=== PATIENT | female | born 1945 | race Caucasian/White ===

== ENCOUNTER 2017-07-18 13:04 | Inpatient (IN) | payer OTHER ==
[2017-07-18 13:20] VITALS: BMI 20.2
--- NOTE | 2017-07-18 13:32 | PDOC ---
History of Present Illness - General Chief Complaint: Shortness of Breath Stated Complaint: SOB Time Seen by Provider: 07/18/17 13:09 History Source: Patient Exam Limitations: No Limitations - History of Present Illness Initial Comments: 07/18/17 13:26 72y F hx of ESRD (MWF, last dialysis on Wed shortened to 2hr due to ont feeling well), htn, recent dx of pna and was hospitalized at [facility] for PNA, and dc on wednesday, currently on abx. Pt notes she has not felt significantly better, and family noted pt was more short of breath so brought pt to the ED for evaluation. pt does endorse a mid epigastric/chest discomfort for the past few adys as wella s orthopnea. pt endorses a poor appettie, and some nausea w/o vomiting. The pt endorses a cough productive of whitish sputum, no associated fever/chills, leg swelling, abd pain, back pain, hemoptysis, numbness/tingling. PMD at [facility]. Past History - Past Medical History Allergies/Adverse Reactions: Allergies Allergy/AdvReac Type Severity Reaction Status Date / Time Penicillins Allergy Unknown Hives Verified 07/19/17 13:28 Home Medications: Ambulatory Orders Amlodipine Besylate [Norvasc -] 5 mg PO DAILY 09/25/14 Sevelamer HCl [Renagel] 2,400 mg PO TID 09/25/14 Aspirin [Aspirin EC] 81 mg PO DAILY 07/18/17 Calcium Acetate [Phoslyra] 3 tab PO TID 07/18/17 Doxycycline Hyclate [Vibramycin] 100 mg PO BID 07/18/17 Metoclopramide HCl [Reglan] 5 mg PO ACHS 07/18/17 Metoprolol Succinate [Toprol Xl] 50 mg PO DAILY 07/18/17 Pantoprazole Sodium [Protonix -] 40 mg PO DAILY 07/18/17 Vit B Comp No.3/Folic/C/Biotin [Leyla-Tunde Rx Tablet] 1 each PO DAILY 07/18/17 COPD: No Dialysis: Yes HTN: Yes - Surgical History Cholecystectomy: Yes - Suicide/Smoking/Psychosocial Hx Smoking History: Never smoked Have you smoked in the past 12 months: No Information on smoking cessation initiated: No Hx Alcohol Use: No Drug/Substance Use Hx: No Substance Use Type: None Review of Systems - Review of Systems Able to Perform ROS?: Yes Comments:: 07/18/17 13:28 Constitutional - no reported Fever, Chills, HEENT: no reported vision changes, sore throat Respiratory: +cough, sob, bno reported hemoptysis Cardiac: +chest pain, no reported palpitations, light headedness, leg swelling Abd/GI: no reported abd pain, nausea, vomiting, blood per rectum, melena, diarrhea : no reported dysuria, frequency, discharge Musculskelatal - no reported back pain, joint swelling skin - no reported bruising, erythema, rash neurological: no reported headache, numbness, focal weakness, tingling, ataxia, hematologic: no reported easy bruising, easy bleeding *Physical Exam - Vital Signs Last Vital Signs Temp Pulse Resp BP Pulse Ox 97.8 F 79 20 155/93 95 07/18/17 13:05 07/18/17 13:17 07/18/17 13:05 07/18/17 13:05 07/18/17 13:17 - Physical Exam Comments: 07/18/17 13:29 GENERAL: The patient is awake, alert, and fully oriented, in moderat respiratory distress, slightly tachpneic HEAD: Normocephalic, atraumatic. EYES: extraocular movements intact, sclera anicteric, conjunctiva clear. ENT: Normal voice, Moist mucous membranes. NECK: Normal range of motion, supple LUNGS: rhonchi at bases L>R, slight wheezing at R base HEART: Regular rate and rhythm, normal S1 and S2 without murmur, rub or gallop. ABDOMEN: Soft, nontender No guarding, no rebound. . No CVA tenderness EXTREMITIES: Normal range of motion, trace edema. No clubbing or cyanosis. No cords, erythema, or tenderness. NEUROLOGICAL: No facial assymetry, Normal speech, moving all 4 extremities spontaneously and symmetrically PSYCH: Normal mood, normal affect. SKIN: Warm, Dry, normal turgor, Heart Score/ECG Review - ECG Impressions Comment:: 07/18/17 13:30 Twelve-lead EKG was performed and reviewed by me. There is normal sinus rhythm with a normal rate. Rate of [address] depressions noted in V5 and V6 ED Treatment Course - LABORATORY CBC & Chemistry Diagram: 07/20/17 10:00 07/19/17 07:20 - RADIOLOGY Radiology Studies Ordered: Category Date Time Status CHEST X-RAY PORTABLE* [RAD] Stat Radiology 07/18/17 13:09 Ordered Medical Decision Making - Medical Decision Making 07/18/17 13:31 82-year-old female with end-stage renal, hypertension presenting with complaint of persistent shortness of breath after recent hospitalization for pneumonia. On arrival the patient was tachypneic appearing, hypoxic to the mid 80s on room air, rales at the bases. 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 devries's service pt bobby makes small bit of urine so will give her some lasix Case discussed in detail with admitting physician including history, physical exam and ancillary studies. Admitting physician has assumed care for the patient, will follow all pending diagnostics and will complete the evaluation and treatment. CRITICAL CARE DOCUMENTATION: I spent ~45 minutes of Critical Care time, excluding separately billable procedures, involving high complexity decision making to assess, manipulate and support vital system function(s) to treat single or multiple vital organ system failure and/or to prevent further life threatening deterioration of the patient' s condition. *DC/Admit/Observation/Transfer Diagnosis at time of Disposition: End stage chronic kidney disease, Hypoxia Fluid overload, unspecified Qualifiers: Hypervolemia type: unspecified Qualified Code(s): E87.70 - Fluid overload, unspecified Chest pain Qualifiers: Chest pain type: unspecified Qualified Code(s): R07.9 - Chest pain, unspecified - Discharge Dispostion Condition at time of disposition: Guarded Decision to Admit order: Yes - Referrals - Patient Instructions - Post Discharge Activity
[2017-07-18 14:11] LABS: BASO % 2.8 % (0-2.0); EOS % 0.9 % (0-4.5); HEMATOCRIT 26.6 % (32.4-45.2); HEMOGLOBIN 9.2 GM/dl (10.7-15.3); LYMPH % 9.3 % (8-40); MCH 34.8 pg (25.7-33.7); MCHC 34.7 g/dl (32.0-36.0); MEAN CELL VOLUME 100.3 fl (80-96); MEAN PLT VOLUME 8.4 fl (7.5-11.1); PLATELET COUNT 519 K/MM3 (134-434); RBC 2.65 M/mm3 (3.60-5.2); RDW 13.5 % (11.6-15.6); WHITE BLOOD COUNT 12.7 K/mm3 (4.0-10.8)
[2017-07-18 14:31] LABS: ALBUMIN 3.2 g/dl (3.5-5.0); ALK PHOS 149 U/L (32-92); ANION GAP 13 (8-16); BILIRUBIN,TOTAL 0.6 mg/dl (0.2-1.0); BLOOD UREA NITROGEN 47 mg/dl (7-18); CALCIUM 8.5 mg/dl (8.4-10.2); CHLORIDE 95 mmol/L (98-107); CO2 19 mmol/L (22-28); CREATININE 6.3 mg/dl (0.6-1.3); GLUCOSE,RANDOM 164 mg/dl (74-106); POTASSIUM 4.7 mmol/L (3.5-5.1); SGOT/AST 23 U/L (10-42); SGPT/ALT 9 U/L (10-40); SODIUM 127 mmol/L (136-145); TOT PROT 8.1 g/dl (6.4-8.3)
[2017-07-18 14:53] LABS: INR 1.24 (0.82-1.09); PROTHROMBIN TIME (PATIENT) 13.8 SEC (10.2-13.0)
[2017-07-18] MEDS ORDERED: VANCOMYCIN 1,000 MG in DEXTROSE 5%-WATER - 250 ML IVPB ONE (15:00)
[2017-07-18 15:09] LABS: VENOUS PH 7.34 (7.32-7.42)
[2017-07-18 15:10] LABS: VENOUS PC02 39.1 mmHg (38-52); VENOUS PO2 41.6 mmHg (28-48)
[2017-07-18] MEDS ORDERED: VANCOMYCIN 1,000 MG VIAL (RESTRICTED TO ID ONLY) ONE (15:13)
[2017-07-18] MEDS ORDERED: ASPIRIN 81 MG CHEWABLE TABLETS PO ONE (15:18)
[2017-07-18] MEDS ORDERED: ASPIRIN 81 MG CHEWABLE TABLETS ONE (15:27)
[2017-07-18] MEDS ORDERED: FUROSEMIDE 40 MG/4 ML INJECTABLE VIAL IVPUSH ONE (15:28)
[2017-07-18] MEDS ORDERED: FUROSEMIDE 40 MG/4 ML INJECTABLE VIAL ONE (15:33)
--- NOTE | 2017-07-18 16:12 | EKG ---
Test Reason : Blood Pressure : / mmHG Vent. Rate : 083 BPM Atrial Rate : 083 BPM P-R Int : 152 ms QRS Dur : 086 ms QT Int : 420 ms P-R-T Axes : 019 078 078 degrees QTc Int : 493 ms NORMAL SINUS RHYTHM NONSPECIFIC ST ABNORMALITY PROLONGED QT ABNORMAL ECG WHEN COMPARED WITH ECG OF 25-SEP-2014 21:40, ST NOW DEPRESSED IN LATERAL LEADS QT HAS LENGTHENED Confirmed by MD Man, Christopher ([id number]) on 07/18/2017 4:11:44 PM Referred By: CAYLA WATSON Confirmed By:Christopher Conway MD
[2017-07-18] MEDS ORDERED: ACETAMINOPHEN 325 MG TABLET (FP) PO ONE (16:25)
[2017-07-18] MEDS ORDERED: PATIENT'S OWN MEDICATION (NON-FORMULARY) (Metoclopramide Hcl [Reglan] 5 MG) PO SCH (16:30)
[2017-07-18] MEDS ORDERED: ACETAMINOPHEN 325 MG TABLET (FP) ONE (16:33)
[2017-07-18] MEDS ORDERED: METOCLOPRAMIDE HCL 10 MG TABLET (FP) PO ONE (16:36)
[2017-07-18] MEDS: METOCLOPRAMIDE HCL 10 MG TABLET (FP) PO SCH ×3 (16:39→22:40)
[2017-07-18] MEDS ORDERED: SEVELAMER CARBONATE 800 MG TAB (FP) PO SCH (17:30)
[2017-07-18] MEDS ORDERED: CALCIUM ACETATE 667 MG CAPSULE (FP) PO SCH (17:30)
--- NOTE | 2017-07-18 21:47 | HP ---
CHIEF COMPLAINT: Shortness of breath PCP: [facility]/Dr. Peña HISTORY OF PRESENT ILLNESS: 72 year-old female with a PMH significant for HTN, ESRD (MWF), last session on 07/16 cut short after 2 hours because patient not feeling well. Patient discharged from [facility] on 07/14 where she was treated for pneumonia. She was discharged on doxycycline 100mg BID. Patient complains of not feeling well since her discharge. She complains of mid-epigastric discomfort and orthopnea x several days. She is now complaining of SOB an right- sided upper back pain. Her last dialysis session on 07/16 was cut short after 2 hours because patient was not feeling well. Denies fever, sweats, chills. ER course was notable for: (1) Afebrile, BP 47/66, p76, SpO2 95% on 3L, RR 28 (2) WB 12.7 (3) CXR: extensive pulmonary and infiltrative changes (4) Vanc x 1; IV levaquin 750mg x 1 Recent Travel: No PAST MEDICAL HISTORY: Hypertension ESRD on HD (MWF) PAST SURGICAL HISTORY: Left arm AV fistula Social History: Smoking: no Alcohol: no Drugs: no Family History: Allergies Penicillins Allergy Home Medications Medication Instructions Recorded Amlodipine Besylate [Norvasc -] 5 mg PO DAILY 09/25/14 Sevelamer HCl [Renagel] 2,400 mg PO TID 09/25/14 Aspirin [Aspirin EC] 81 mg PO DAILY 07/18/17 Calcium Acetate [Phoslyra] 3 tab PO TID 07/18/17 Doxycycline Hyclate [Vibramycin] 100 mg PO BID 07/18/17 Metoclopramide HCl [Reglan] 5 mg PO ACHS 07/18/17 Metoprolol Succinate [Toprol Xl] 50 mg PO DAILY 07/18/17 Pantoprazole Sodium [Protonix -] 40 mg PO DAILY 07/18/17 Vit B Comp No.3/Folic/C/Biotin 1 each PO DAILY 07/18/17 [Leyla-Tunde Rx Tablet] REVIEW OF SYSTEMS CONSTITUTIONAL: Absent: fever, chills, diaphoresis, generalized weakness, malaise, loss of appetite, weight change HEENT: Absent: rhinorrhea, nasal congestion, throat pain, throat swelling, difficulty swallowing, mouth swelling, ear pain, eye pain, visual changes CARDIOVASCULAR: +chest pressure Absent: syncope, palpitations, irregular heart rate, lightheadedness, peripheral edema RESPIRATORY: +SOB, orthopnea Absent: cough, dyspnea with exertion, wheezing, stridor, hemoptysis GASTROINTESTINAL: Absent: abdominal pain, abdominal distension, nausea, vomiting, diarrhea, constipation, melena, hematochezia GENITOURINARY: Absent: dysuria, frequency, urgency, hesitancy, hematuria, flank pain, genital pain MUSCULOSKELETAL: Absent: myalgia, arthralgia, joint swelling, back pain, neck pain SKIN: Absent: rash, itching, pallor HEMATOLOGIC/IMMUNOLOGIC: Absent: easy bleeding, easy bruising, lymphadenopathy, frequent infections ENDOCRINE: Absent: unexplained weight gain, unexplained weight loss, heat intolerance, cold intolerance NEUROLOGIC: Absent: headache, focal weakness or paresthesias, dizziness, unsteady gait, seizure, mental status changes, bladder or bowel incontinence PSYCHIATRIC: Absent: anxiety, depression, suicidal or homicidal ideation, hallucinations. PHYSICAL EXAMINATION Vital Signs - 24 hr Vital Signs Temperature 98.2 F 07/18/17 19:27 Pulse Rate 73 07/18/17 19:27 Respiratory Rate 22 07/18/17 19:27 Blood Pressure 145/72 07/18/17 19: O2 Sat by Pulse Oximetry (%) 92 L 07/18/17 18:25 GENERAL: Awake, alert, and fully oriented, in mild respiratory distress and anxious HEAD: Normal with no signs of trauma. EYES: Pupils equal, round and reactive to light, extraocular movements intact, sclera anicteric, conjunctiva clear. No lid lag. EARS, NOSE, THROAT: Ears normal, nares patent, oropharynx clear without exudates. Moist mucous membranes. NECK: Normal range of motion, supple without lymphadenopathy, JVD, or masses. LUNGS: Diffuse rales and rhonchi HEART: Regular rate and rhythm, normal S1 and S2 without murmur, rub or gallop. ABDOMEN: Soft, nontender, not distended, normoactive bowel sounds, no guarding, no rebound; ecchymotic areas MUSCULOSKELETAL: Normal range of motion at all joints. No bony deformities or tenderness. No CVA tenderness. UPPER EXTREMITIES: 2+ pulses, warm, well-perfused. Extensive ecchymotic areas bilaterally; left AV fistula, +thrill +bruit LOWER EXTREMITIES: 2+ pulses, warm, well-perfused. No calf tenderness. No peripheral edema. NEUROLOGICAL: Cranial nerves II-XII intact. Normal speech. Laboratory Results - last 24 hr 07/18/17 07/18/17 07/18/17 13:54 13:54 13:54 WBC 12.7 H RBC 2.65 L Hgb 9.2 L Hct 26.6 L MCV 100.3 H MCH 34.8 H MCHC 34.7 RDW 13.5 Plt Count 519 H MPV 8.4 Neutrophils % 80.0 Lymphocytes % 9.3 Monocytes % 7.0 Eosinophils % 0.9 Basophils % 2.8 H PT with INR 13.8 H INR 1.24 H PTT (Actin FS) 32.0 VBG pH POC VBG pCO2 POC VBG pO2 Mixed VBG HCO3 Sodium 127 L Potassium 4.7 Chloride 95 L Carbon Dioxide 19 L Anion Gap 13 BUN 47 H Creatinine 6.3 H Creat Clearance w eGFR 6.50 Random Glucose 164 H Lactic Acid Calcium 8.5 Total Bilirubin 0.6 AST 23 ALT 9 L Alkaline Phosphatase 149 H Troponin I Total Protein 8.1 Albumin 3.2 L 07/18/17 07/18/17 07/18/17 13:54 13:54 14:00 WBC RBC Hgb Hct MCV MCH MCHC RDW Plt Count MPV Neutrophils % Lymphocytes % Monocytes % Eosinophils % Basophils % PT with INR INR PTT (Actin FS) VBG pH 7.34 POC VBG pCO2 39.1 POC VBG pO2 41.6 Mixed VBG HCO3 20.4 Sodium Potassium Chloride Carbon Dioxide Anion Gap BUN Creatinine Creat Clearance w eGFR Random Glucose Lactic Acid 0.9 Calcium Total Bilirubin AST ALT Alkaline Phosphatase Troponin I 0.17 H Total Protein Albumin 07/18/17 19:30 WBC RBC Hgb Hct MCV MCH MCHC RDW Plt Count MPV Neutrophils % Lymphocytes % Monocytes % Eosinophils % Basophils % PT with INR INR PTT (Actin FS) VBG pH POC VBG pCO2 POC VBG pO2 Mixed VBG HCO3 Sodium Potassium Chloride Carbon Dioxide Anion Gap BUN Creatinine Creat Clearance w eGFR Random Glucose Lactic Acid 0.8 Calcium Total Bilirubin AST ALT Alkaline Phosphatase Troponin I Total Protein Albumin Imaging CXR: extensive pulmonary and infiltrative changes ASSESSMENT/PLAN: 72 year-old female with a PMH of HTN and ESRD. Discharged from OSH five days ago for pneumonia on PO antibiotics. Last HD session on 07/17 cut short. Admitted for hypoxic respiratory failure, ESRD, and pneumonia. Hypoxic respiratory failure secondary --likely multifactorial: volume overload +/- pneumonia --placed on NRB, satting 100% ESRD on HD --emergent dialysis --continue sevelamer Pneumonia --hospitalized for five days at [facility] for pneumonia, discharged on 07/14 on doxy BID --received levaquin and vanc in ED --penicillin allergic --ID consult placed Chest pressure --initial troponin elevated 0.17, two pending --cardiology consult Hypertension --BP stable --continue amlodipine, Toprol XL DVT prophylais: subq heparin Visit type - Emergency Visit Emergency Visit: Yes ED Registration Date: 07/18/17 Care time: The patient presented to the Emergency Department on the above date and was hospitalized for further evaluation of their emergent condition. - New Patient This patient is new to me today: Yes Date on this admission: 07/18/17 - Critical Care Critical Care patient: No Hospitalist Screening - Colonoscopy Questionnaire Colonoscopy Questionnaire: Colonoscopy Questionnaire - Patient: 50 - 75 years old and never had a screening colonoscopy: Unknown History of colon or rectal polyps, or CA: Unknown History of IBD, Crohn's disease or UC: Unknown History of abdominal radiation therapy as a child: Unknown - Relative: 1 with colon or rectal CA, or polyps at age 60 or younger: Unknown Colon or rectal CA diagnosed at age 45 or younger: Unknown Multiple relatives with colon or rectal CA: Unknown - Outcome: Screening Result: Negative Screen
[2017-07-18] MEDS ORDERED: DOXYCYCLINE HYCLATE 100 MG CAPSULE PO SCH (22:00)
[2017-07-18] MEDS ORDERED: SEVELAMER HCL 1600 MG PO SCH (22:00)
[2017-07-18] MEDS ORDERED: CALCIUM ACETATE PO SCH (22:00)
[2017-07-18] MEDS: HEPARIN NA (PORCINE) 5,000 UNITS/ML 1ML VIAL SQ SCH (22:36)
--- NOTE | 2017-07-18 23:20 | CON.NEP ---
Consult Consult Specialty:: nephrology Referred by:: martha walker Reason for Consultation:: esrd, fluid overload - History of Present Illness Chief Complaint: sob, weakness History of Present Illness: patient has been sick x 1 week s/p admission for pneumonia at [facility] treated with iv abx then sent home with oral abx she did not get better and she was to sick to stay for a full treatment in dialysis in her outpatient unit she was brought to [facility] and then transferred to this [facility] with dx of fluid overload in need of urgent dialysis she is seen during the treatment - History Source History Provided By: Patient, Family Member Limitations to Obtaining History: Clinical Condition - Past Medical History Cardio/Vascular: Yes: HTN - Alcohol/Substance Use Hx Alcohol Use: No - Smoking History Smoking history: Never smoked Have you smoked in the past 12 months: No Home Medications - Allergies Allergies/Adverse Reactions: Allergies Allergy/AdvReac Type Severity Reaction Status Date / Time Penicillins Allergy Unknown Verified 07/18/17 13:15 - Home Medications Home Medications: Ambulatory Orders Amlodipine Besylate [Norvasc -] 5 mg PO DAILY 09/25/14 Sevelamer HCl [Renagel] 2,400 mg PO TID 09/25/14 Aspirin [Aspirin EC] 81 mg PO DAILY 07/18/17 Calcium Acetate [Phoslyra] 3 tab PO TID 07/18/17 Doxycycline Hyclate [Vibramycin] 100 mg PO BID 07/18/17 Metoclopramide HCl [Reglan] 5 mg PO ACHS 07/18/17 Metoprolol Succinate [Toprol Xl] 50 mg PO DAILY 07/18/17 Pantoprazole Sodium [Protonix -] 40 mg PO DAILY 07/18/17 Vit B Comp No.3/Folic/C/Biotin [Leyla-Tunde Rx Tablet] 1 each PO DAILY 07/18/17 Nephrology Consult - Height Height: 5 ft - Weight Weight: 103 lb 9.876 oz - BMI Body Mass Index (BMI): 20.2 - Lab Results CBC,BMP: CBC, BMP 07/18/17 13:54 07/18/17 13:54 Anion Gap: Anion Gap Anion Gap 13 (8-16) 07/18/17 13:54 - Physical Examination Vital Signs: Vital Signs Temperature 97.6 F 07/18/17 22:45 Pulse Rate 83 07/18/17 22:50 Respiratory Rate 07/18/17 22:50 Blood Pressure 162/82 07/18/17 22:50 O2 Sat by Pulse Oximetry (%) 92 L 07/18/17 18:25 Constitutional: Yes: Diaphoresis, Mild Distress Cardiovascular: Yes: JVD, S1, S2 Respiratory: Yes: On Venti-Mask, Rales, Rhonchi, Wheezes Gastrointestinal: Yes: WNL, Normal Bowel Sounds Access for Hemodialysis: AV Fistula Musculoskeletal: Yes: WNL Edema: No Neurological: Yes: Alert Psychiatric: Yes: Alert Assessment/Plan bilateral pna esrd possible component of chf r/o impending ards Plan- urgent hemodialysis on monitored floor
[2017-07-19] MEDS ORDERED: ACETAMINOPHEN 500 MG TABLET (FP) PO ONE (02:01)
[2017-07-19] MEDS: HEPARIN NA (PORCINE) 5,000 UNITS/ML 1ML VIAL SQ SCH ×3 (06:27→21:56)
[2017-07-19] MEDS: METOCLOPRAMIDE HCL 10 MG TABLET (FP) PO SCH ×4 (06:27→21:56)
[2017-07-19] MEDS ORDERED: PT OWN MED DRAWER 7, Y5N ONE ×3 (06:52→17:59)
[2017-07-19 07:54] LABS: BASO % 1.1 % (0-2.0); EOS % 0.4 % (0-4.5); HEMATOCRIT 22.9 % (32.4-45.2); HEMOGLOBIN 7.9 GM/dL (10.7-15.3); LYMPH % 10.8 % (8-40); MCH 34.5 pg (25.7-33.7); MCHC 34.4 g/dl (32.0-36.0); MEAN CELL VOLUME 100.3 fl (80-96); MEAN PLT VOLUME 9.1 fl (7.5-11.1); NEUT % 76.7 % (42.8-82.8); PLATELET COUNT 400 K/MM3 (134-434); RBC 2.28 M/mm3 (3.60-5.2); RDW 13.8 % (11.6-15.6); WHITE BLOOD COUNT 9.5 K/mm3 (4.0-10.0)
[2017-07-19 08:33] LABS: ALBUMIN 2.9 g/dl (3.4-5.0); ANION GAP 10 (8-16); BLOOD UREA NITROGEN 21 mg/dL (7-18); CALCIUM 8.1 mg/dL (8.5-10.1); CHLORIDE 100 mmol/L (98-107); CO2 31 mmol/L (21-32); MAGNESIUM 1.8 mg/dL (1.8-2.4); POTASSIUM 3.8 mmol/L (3.5-5.1); SGOT/AST 18 U/L (15-37); SGPT/ALT 9 U/L (12-78); SODIUM 141 mmol/L (136-145)
[2017-07-19 08:36] LABS: ALK PHOS 148 U/L (45-117); BILIRUBIN,TOTAL 0.6 mg/dL (0.2-1.0); CREATININE 3.5 mg/dL (0.55-1.02); GLUCOSE,RANDOM 92 mg/dL (74-106); TOT PROT 7.4 g/dl (6.4-8.2)
[2017-07-19] MEDS: SEVELAMER CARBONATE 800 MG TAB (FP) PO SCH ×3 (08:50→17:03)
[2017-07-19] MEDS: amLODIPine BESYLATE 5 MG TABLET (FP) PO SCH (09:03)
[2017-07-19] MEDS: ASPIRIN COATED 81 MG TABLET.EC PO SCH (09:03)
[2017-07-19] MEDS: PANTOPRAZOLE 20 MG TABLET (FP) PO SCH (09:04)
--- NOTE | 2017-07-19 09:40 | PN ---
Progress Note (short form) - Note Progress Note: 72 year-old female from [place] on hd for 6 years Goes to [place] [facility] significant for HTN, ESRD (MWF), last session on 07/16 cut short after 2 hours because patient not feeling well. Patient discharged from [facility] on 07/14 where she was treated for pneumonia. She was discharged on doxycycline 100mg BID. Patient complains of not feeling well since her discharge. She complains of mid-epigastric discomfort and orthopnea x several days. She is now complaining of SOB an right-sided upper back pain. Her last dialysis session on Wednesday, 07/16 was cut short after 2 hours because patient was not feeling well. Denies fever, sweats, chills. dialyed last night 2.3 kg removed xray bilateral opacities suggest get plain CT chest differentiate fluid from pneumnia will redialyze in am anemic start venofer and procrit hold BP meds pre HD
[2017-07-19] MEDS ORDERED: PANTOPRAZOLE 20 MG TABLET (FP) PO SCH (10:00)
[2017-07-19] MEDS ORDERED: IRON SUCROSE INJECTION 100 MG in SODIUM CHLORIDE 95 ML IVPB ONE (11:00)
[2017-07-19] MEDS ORDERED: EPOETIN ALFA 20,000 UNIT/1 ML VIAL SQ ONE (11:00)
--- NOTE | 2017-07-19 11:56 | CON.ID ---
Consult Consult Specialty:: infectious disease Referred by:: dr devries Reason for Consultation:: pneumonia - History of Present Illness Chief Complaint: sob, orthopnea History of Present Illness: 72 year old female with esrd on hd recently returned from [place] 3 weeks ago she has been going to HD twice a week while in [place] after her return, she noted SOB and was visiting her daughter when she noted worsening sob and was admitted for 4 days to [facility]- discharged on 07/14 on doxycycline yesterday she developed no fevers, no weight loss no night sweats reports prior PPD negative no sick contacts minimal cough mainly orthopnea- cannot lay flat - Past Medical History Cardio/Vascular: Yes: HTN - Alcohol/Substance Use Hx Alcohol Use: No - Smoking History Smoking history: Never smoked Have you smoked in the past 12 months: No Home Medications - Allergies Allergies/Adverse Reactions: Allergies Allergy/AdvReac Type Severity Reaction Status Date / Time Penicillins Allergy Unknown Verified 07/18/17 13:15 - Home Medications Home Medications: Ambulatory Orders Amlodipine Besylate [Norvasc -] 5 mg PO DAILY 09/25/14 Sevelamer HCl [Renagel] 2,400 mg PO TID 09/25/14 Aspirin [Aspirin EC] 81 mg PO DAILY 07/18/17 Calcium Acetate [Phoslyra] 3 tab PO TID 07/18/17 Doxycycline Hyclate [Vibramycin] 100 mg PO BID 07/18/17 Metoclopramide HCl [Reglan] 5 mg PO ACHS 07/18/17 Metoprolol Succinate [Toprol Xl] 50 mg PO DAILY 07/18/17 Pantoprazole Sodium [Protonix -] 40 mg PO DAILY 07/18/17 Vit B Comp No.3/Folic/C/Biotin [Leyla-Tunde Rx Tablet] 1 each PO DAILY 07/18/17 Physical Exam Vital Signs: Vital Signs Temperature 98.9 F 07/19/17 06:00 Pulse Rate 67 07/19/17 06:00 Respiratory Rate 18 07/19/17 06:00 Blood Pressure 132/55 07/19/17 06:00 O2 Sat by Pulse Oximetry (%) 92 L 07/18/17 21:00 Labs: CBC, BMP 07/19/17 07:20 07/19/17 07:20
--- NOTE | 2017-07-19 12:06 | PN ---
Teaching Attending Note Name of Resident: José Miguel Stone ATTENDING PHYSICIAN STATEMENT I saw and evaluated the patient. I reviewed the resident's note and discussed the case with the resident. I agree with the resident's findings and plan as documented. SUBJECTIVE: esrd/hd for 6 years just discharged from [facility] after 4 day stay on 07/14 for pneumonia- doxycycline minimal cough no fevers no night sweats no weight loss reports PPD negative just returned three weeks ago from [place]- dialyzed twice a week there no sick contacts received emergent HD yesterday vancomycin and levaquin yesterday recent cholycystectomy in [place] anuric pen allergy- rash and hives OBJECTIVE: Vital Signs Period Temp Pulse Resp BP Sys/Barnard Pulse Ox Last 24 Hr 97.6 F-98.9 F 62-97 18-28 109-188/55-93 88-97 good dentition cor-rrr lungs bilateral crackles at bases abd soft,nt ext trace pretibial edema no CHAVO avf no erythema or induration CBC, BMP 07/19/17 07:20 07/19/17 07:20 blood cultures pending ASSESSMENT AND PLAN: pneumonia versus CHF esrd/hd penicillin allergy vanco/levaquin- given in ED yesterday check vanco level in am chest ct today records from [facility] will hold further levaquin with prolonged QTC until discussed with Cardiology vanco/azactam for now Problem List - Problems (1) Pneumonia Code(s): J18.9 - PNEUMONIA, UNSPECIFIED ORGANISM (2) Fluid overload, unspecified Code(s): E87.70 - FLUID OVERLOAD, UNSPECIFIED Qualifiers: Hypervolemia type: unspecified Qualified Code(s): E87.70 - Fluid overload, unspecified (3) ESRD (end stage renal disease) on dialysis Code(s): N18.6 - END STAGE RENAL DISEASE; Z99.2 - DEPENDENCE ON RENAL DIALYSIS (4) Penicillin allergy Code(s): Z88.0 - ALLERGY STATUS TO PENICILLIN
--- NOTE | 2017-07-19 12:40 | CON.ID ---
Consult Consult Specialty:: Infectious disease Referred by:: Chelo Quintanilla Reason for Consultation:: Pneumonia - History of Present Illness Chief Complaint: SOB, Cough History of Present Illness: The patient is a 72 yo guyanese speaking f w/ PMH ESRD on HD (MWF), HTN who presented to the ED from HD c/o midepigastric discomfort, orthopnea and SOB. Per the patient, these symproms have been present for several days and she only cane ot the ER because the HD staff sent her. The patient also endorsed a cough which was productive of sputum previously, but is no longer productive. Patient denies fevers, chills, diarrhea or constipation. She had a recent admission at [facility] for a pneumonia. Per the patient's son, who was at bedside, she received a CT scan, was treated with antibiotics, then was discharged on 07/14 on oral Doxycycline 100mg BID. The patient was originally born in [place] and frequently travels between here and there (returned 3 weeks ago). [place] and has had exposure to agriculture and livestock while there. Per the patient and her family, she was tested for TB in [place] via [facility] and it was negative. - History Source History Provided By: Patient, Family Member Limitations to Obtaining History: Language Barrier (Dutch) - Past Medical History Cardio/Vascular: Yes: HTN Renal/: Yes: Renal Failure, Hemodialysis - Alcohol/Substance Use Hx Alcohol Use: No - Smoking History Smoking history: Never smoked Have you smoked in the past 12 months: No - Social History Usual Living Arrangement: With Child Place of : Other ([place]) History of Recent Travel: Yes (retuened from [place] 3 weeks ago) Home Medications - Allergies Allergies/Adverse Reactions: Allergies Allergy/AdvReac Type Severity Reaction Status Date / Time Penicillins Allergy Unknown Hives Verified 07/19/17 13:28 - Home Medications Home Medications: Ambulatory Orders Amlodipine Besylate [Norvasc -] 5 mg PO DAILY 09/25/14 Sevelamer HCl [Renagel] 2,400 mg PO TID 09/25/14 Aspirin [Aspirin EC] 81 mg PO DAILY 07/18/17 Calcium Acetate [Phoslyra] 3 tab PO TID 07/18/17 Doxycycline Hyclate [Vibramycin] 100 mg PO BID 07/18/17 Metoclopramide HCl [Reglan] 5 mg PO ACHS 07/18/17 Metoprolol Succinate [Toprol Xl] 50 mg PO DAILY 07/18/17 Pantoprazole Sodium [Protonix -] 40 mg PO DAILY 07/18/17 Vit B Comp No.3/Folic/C/Biotin [Leyla-Tunde Rx Tablet] 1 each PO DAILY 07/18/17 Review of Systems - Review of Systems Constitutional: denies: Chills, Fever HENT: denies: Mouth Swelling, Toothache Cardiovascular: reports: Shortness of Breath. denies: Chest Pain, Edema, Palpitations Respiratory: reports: Cough, Orthopnea, SOB. denies: Hemoptysis Gastrointestinal: denies: Abdominal Pain, Constipation, Diarrhea Physical Exam Vital Signs: Vital Signs Temperature 98.9 F 07/19/17 06:00 Pulse Rate 67 07/19/17 06:00 Respiratory Rate 18 07/19/17 06:00 Blood Pressure 132/55 07/19/17 06:00 O2 Sat by Pulse Oximetry (%) 92 L 07/18/17 21:00 Constitutional: Yes: Well Nourished, No Distress, Calm Neck: Yes: Supple, Trachea Midline. No: Lymphadenopathy Cardiovascular: Yes: Regular Rate and Rhythm, S1, S2. No: JVD, Gallop, Murmur, Rub Respiratory: Yes: Regular, Diminished (crackles in mid and lower lung silverman with dimisnished breath sounds at right base) Gastrointestinal: Yes: Normal Bowel Sounds, Soft Edema: No Integumentary: Yes: WNL Neurological: Yes: Alert, Oriented Labs: CBC, BMP 07/19/17 07:20 07/19/17 07:20 Imaging - Results Chest X-ray: Report Reviewed, Image Reviewed (b/l fluffy infiltrates with possible opacity in the right middle lobe Bases obscured) Assessment/Plan The Patient is a 72 yo f w/ PMH HTN, ESRD on HD who is admitted for the treatment of pneumonia. #Pneumonia -s/p Vancomycin 1g in ED and Levaquin 750mg in ED -patient's creatinine clearance is 11; these medications are likely still at therapeutic levels -will obtain random Vanc level in AM and titrate dose appropriately -QTc 493; use caution with administration of Levaquin -CXR showing extensive infiltrates b/l with blunting of the bases -Will order CT Chest w/o contrast to better assess the airspace -Will order Quantiferon gold r/o TB; no need for iso at this time -request for medical records from [facility] submitted. -f/u blood cultures, hepatitis serology -patient oliguric, so cannot obtain urine antigens for PNA -will follow, thank you for this consultive opportunity -Case and treatment plan d/w Dr. Robledo
--- NOTE | 2017-07-19 14:53 | PN ---
Progress Note, Physician Chief Complaint: AWAKE , LETHARGIC FAMILY BEDSIDE EVENTS AND NOTES REVIEWED - Current Medication List Current Medications: Active Medications Amlodipine Besylate (Norvasc -) 5 mg PO DAILY [facility] Last Admin: 07/19/17 09:03 Dose: 5 mg Aspirin (Ecotrin -) 81 mg PO DAILY [facility] Last Admin: 07/19/17 09:03 Dose: 81 mg Heparin Sodium (Porcine) (Heparin -) 5,000 unit SQ TID [facility] Last Admin: 07/19/17 13:24 Dose: 5,000 unit Metoclopramide HCl (Reglan -) 5 mg PO ACHS [facility] Last Admin: 07/19/17 10:23 Dose: 5 mg Metoprolol Succinate (Toprol Xl -) 50 mg PO DAILY [facility] Last Admin: 07/19/17 09:03 Dose: 50 mg Pantoprazole Sodium (Protonix -) 40 mg PO DAILY [facility] Last Admin: 07/19/17 09:04 Dose: 40 mg Sevelamer Carbonate (Renvela -) 2,400 mg PO TIDCM [facility] Last Admin: 07/19/17 12:04 Dose: 2,400 mg - Objective Vital Signs: Vital Signs Temperature 98.9 F 07/19/17 06:00 Pulse Rate 67 07/19/17 06:00 Respiratory Rate 18 07/19/17 06:00 Blood Pressure 132/55 07/19/17 06:00 O2 Sat by Pulse Oximetry (%) 92 L 07/18/17 21:00 Constitutional: Yes: Mild Distress Eyes: Yes: WNL HENT: Yes: WNL Neck: Yes: WNL Cardiovascular: Yes: Murmur Respiratory: Yes: Poor Air Entry, SOB Gastrointestinal: Yes: WNL Genitourinary: Yes: Incontinence Musculoskeletal: Yes: Muscle Weakness Extremities: Yes: WNL Edema: No Peripheral Pulses WNL: Yes Integumentary: Yes: WNL Wound/Incision: Yes: Clean/Dry Neurological: Yes: Unsteady Gait ...Motor Strength: LLE, RLE Psychiatric: Yes: Other Labs: CBC, BMP 07/19/17 07:20 07/19/17 07:20 INR, PTT INR 1.24 (0.82-1.09) H 07/18/17 13:54 Problem List - Problems (1) ESRD (end stage renal disease) on dialysis Code(s): N18.6 - END STAGE RENAL DISEASE; Z99.2 - DEPENDENCE ON RENAL DIALYSIS (2) End stage chronic kidney disease Code(s): N18.6 - END STAGE RENAL DISEASE (3) Fluid overload, unspecified Code(s): E87.70 - FLUID OVERLOAD, UNSPECIFIED Qualifiers: Hypervolemia type: unspecified Qualified Code(s): E87.70 - Fluid overload, unspecified (4) Hypoxia Code(s): R09.02 - HYPOXEMIA (5) Pneumonia Code(s): J18.9 - PNEUMONIA, UNSPECIFIED ORGANISM Assessment/Plan IV ABX PNA TX RESP SUPPORT LABS ESRD ON HD PER NEPHROLOGY OOB TO CHAIR PT HU
--- NOTE | 2017-07-19 16:43 | CON.CARD ---
Consult Consult Specialty:: Cardiology Referred by:: lyndsey Peña Reason for Consultation:: SOB. Troponins positive - History of Present Illness Chief Complaint: SOB History of Present Illness: 72 year old female with a pmhx of htn, ESRD on HD (MWF), and dm s/p recent cholecystectomy in [place] one month ago who was recently admitted to outside hospital one week ago for cough and sob with diagnosis made of pna. Treated with Abx and sent home. Reports that she has been sob and not feeling well since she went home. Biggest issue seems to be sob with lying down and cannot sleep as a result. Some mid-epigastric discomfort. On Wednesday, dialysis was cut short as she was not feeling well. Here, afebrile with WBC 12.7. CXR: extensive pulmonary and infiltrative changes. Troponins 0.5 EKG: sinus with nonspecific T wave changes As per chart, Echocardiogram done on 07/13/17: mildly reduced lvef 45-49%. left atrial dilatation, moderate MR with mild MS, mild TR, mild pulm htn. No pericardial effusion. Chest CT on 07/14/17: mod b/l pleuraleffusions, b/l upper and lower lobe infiltrates, multiple low-density lesions of the liver. - History Source History Provided By: Family Member, Medical Record - Past Medical History Cardio/Vascular: Yes: HTN Renal/: Yes: Renal Failure, Hemodialysis - Alcohol/Substance Use Hx Alcohol Use: No - Smoking History Smoking history: Never smoked Have you smoked in the past 12 months: No - Social History Usual Living Arrangement: With Child History of Recent Travel: Yes (retuened from [place] 3 weeks ago) Home Medications - Allergies Allergies/Adverse Reactions: Allergies Allergy/AdvReac Type Severity Reaction Status Date / Time Penicillins Allergy Unknown Hives Verified 07/19/17 13:28 - Home Medications Home Medications: Ambulatory Orders Amlodipine Besylate [Norvasc -] 5 mg PO DAILY 09/25/14 Sevelamer HCl [Renagel] 2,400 mg PO TID 09/25/14 Aspirin [Aspirin EC] 81 mg PO DAILY 07/18/17 Calcium Acetate [Phoslyra] 3 tab PO TID 07/18/17 Doxycycline Hyclate [Vibramycin] 100 mg PO BID 07/18/17 Metoclopramide HCl [Reglan] 5 mg PO ACHS 07/18/17 Metoprolol Succinate [Toprol Xl] 50 mg PO DAILY 07/18/17 Pantoprazole Sodium [Protonix -] 40 mg PO DAILY 07/18/17 Vit B Comp No.3/Folic/C/Biotin [Leyla-Tunde Rx Tablet] 1 each PO DAILY 07/18/17 Vital Signs: Vital Signs Temperature 98.9 F 07/19/17 13:20 Pulse Rate 73 07/19/17 13:20 Respiratory Rate 20 07/19/17 13:20 Blood Pressure 131/59 07/19/17 13:20 O2 Sat by Pulse Oximetry (%) 95 07/19/17 09:00 Constitutional: Yes: Other (frail appearance) Respiratory: Yes: Rales Gastrointestinal: Yes: Normal Bowel Sounds, Soft Cardiovascular: Yes: Regular Rate and Rhythm JVD: Yes Carotid Bruit: No Heart Sounds: Yes: S1, S2 Murmur: No: Systolic Murmur Edema: No - Other Data Labs, Other Data: CBC, BMP 07/19/17 07:20 07/19/17 07:20 INR, PTT INR 1.24 (0.82-1.09) H 07/18/17 13:54 Troponin, BNP 07/19/17 02:00 Troponin I 0.54 H Troponin, BNP 07/19/17 02:00 Troponin I 0.54 H Imaging - Results Chest X-ray: Report Reviewed EKG: Image Reviewed Problem List - Problems (1) Chest pain Code(s): R07.9 - CHEST PAIN, UNSPECIFIED Qualifiers: Chest pain type: unspecified Qualified Code(s): R07.9 - Chest pain, unspecified (2) ESRD (end stage renal disease) on dialysis Code(s): N18.6 - END STAGE RENAL DISEASE; Z99.2 - DEPENDENCE ON RENAL DIALYSIS Assessment/Plan 72 year old female with a pmhx of htn, ESRD on HD (MWF), and dm s/p recent cholecystectomy in [place] one month ago who was recently admitted to outside hospital one week ago for cough and sob with diagnosis made of pna. Treated with Abx and sent home. Reports that she has been sob and not feeling well since she went home. Biggest issue seems to be sob with lying down and cannot sleep as a result. Some mid-epigastric discomfort. On Wednesday, dialysis was cut short as she was not feeling well. Here, afebrile with WBC 12.7. CXR: extensive pulmonary and infiltrative changes. Troponins 0.5 EKG: sinus with nonspecific T wave changes As per chart, Echocardiogram done on 07/13/17: mildly reduced lvef 45-49%. left atrial dilatation, moderate MR with mild MS, mild TR, mild pulm htn. No pericardial effusion. Chest CT on 07/14/17: mod b/l pleuraleffusions, b/l upper and lower lobe infiltrates, multiple low-density lesions of the liver. 1) Admitted for SOB Her symptoms sound more like volume overload with orthopnea being the main complaint Abx as per ID team. -Would continue to remove volume with dialysis as still volume overloaded on exam -BP controlled on metoprolol and amlodipine so would continue. -Echocardiogram only done last week at outside hospital with LVEF 45-49% and moderate MR. Goal is bp control and volume removal. No further cardiac intervention for Troponins 0.5. No acute ekg changes and no active chest pain. On aspirin/beta yoel/statin. Trend H/h as went down today and follow up with primary team. -Planned for chest CT to further evaluate question of pna. Also noted to have liver lesions on previous imagining at outside hospital. Follow up as per primary team
[2017-07-19] MEDS: AZTREONAM 0.5 GM in DEXTROSE 5%-WATER - 50 ML IVPB SCH (17:53)
[2017-07-20] MEDS ORDERED: PT OWN MED DRAWER 7, Y5N ONE (05:39)
[2017-07-20] MEDS: AZTREONAM 0.5 GM in DEXTROSE 5%-WATER - 50 ML IVPB SCH ×2 (05:57→17:50)
[2017-07-20] MEDS: HEPARIN NA (PORCINE) 5,000 UNITS/ML 1ML VIAL SQ SCH ×3 (05:57→22:14)
[2017-07-20] MEDS: METOCLOPRAMIDE HCL 10 MG TABLET (FP) PO SCH ×4 (06:01→22:14)
--- NOTE | 2017-07-20 09:40 | PN ---
Progress Note, Physician Chief Complaint: Weak No chest pain Breathing improved Sinus on tele with no events History of Present Illness: 72 year old female with a pmhx of htn, ESRD on HD (MWF), and dm s/p recent cholecystectomy in [place] one month ago who was recently admitted to outside hospital one week ago for cough and sob with diagnosis made of pna. Treated with Abx and sent home. Reports that she has been sob and not feeling well since she went home. Biggest issue seems to be sob with lying down and cannot sleep as a result. Some mid-epigastric discomfort. On Wednesday, dialysis was cut short as she was not feeling well. Here, afebrile with WBC 12.7. CXR: extensive pulmonary and infiltrative changes. Troponins 0.5 EKG: sinus with nonspecific T wave changes As per chart, Echocardiogram done on 07/13/17: mildly reduced lvef 45-49%. left atrial dilatation, moderate MR with mild MS, mild TR, mild pulm htn. No pericardial effusion. Chest CT on 07/14/17: mod b/l pleuraleffusions, b/l upper and lower lobe infiltrates, multiple low-density lesions of the liver. - Current Medication List Current Medications: Active Medications Amlodipine Besylate (Norvasc -) 5 mg PO DAILY [facility] Last Admin: 07/19/17 09:03 Dose: 5 mg Aspirin (Ecotrin -) 81 mg PO DAILY [facility] Last Admin: 07/19/17 09:03 Dose: 81 mg Heparin Sodium (Porcine) (Heparin -) 5,000 unit SQ TID [facility] Last Admin: 07/20/17 05:57 Dose: 5,000 unit Aztreonam 0.5 gm/ Dextrose 50 mls @ 100 mls/hr IVPB BID@0600,1800 [facility] PRN Reason: Protocol Last Admin: 07/20/17 05:57 Dose: 100 mls/hr Metoclopramide HCl (Reglan -) 5 mg PO ACHS [facility] Last Admin: 07/20/17 06:01 Dose: 5 mg Metoprolol Succinate (Toprol Xl -) 50 mg PO DAILY [facility] Last Admin: 07/19/17 09:03 Dose: 50 mg Pantoprazole Sodium (Protonix -) 40 mg PO DAILY [facility] Last Admin: 07/19/17 09:04 Dose: 40 mg Sevelamer Carbonate (Renvela -) 2,400 mg PO TIDCM [facility] Last Admin: 07/19/17 17:03 Dose: 2,400 mg - Objective Vital Signs: Vital Signs Temperature 98.5 F 07/20/17 07:30 Pulse Rate 80 07/20/17 07:30 Respiratory Rate 18 07/20/17 08:02 Blood Pressure 158/76 07/20/17 07:30 O2 Sat by Pulse Oximetry (%) 94 L 07/20/17 08:02 Constitutional: Yes: No Distress, Cachectic Neck: Yes: Supple Cardiovascular: Yes: Regular Rate and Rhythm, JVD, S1, S2 Respiratory: Yes: Rales (bibasilar rales) Gastrointestinal: Yes: Normal Bowel Sounds, Soft Edema: No (warm) Labs: CBC, BMP 07/19/17 07:20 INR, PTT INR 1.24 (0.82-1.09) H 07/18/17 13:54 Problem List - Problems (1) Chest pain Code(s): R07.9 - CHEST PAIN, UNSPECIFIED Qualifiers: Chest pain type: unspecified Qualified Code(s): R07.9 - Chest pain, unspecified (2) ESRD (end stage renal disease) on dialysis Code(s): N18.6 - END STAGE RENAL DISEASE; Z99.2 - DEPENDENCE ON RENAL DIALYSIS Assessment/Plan 72 year old female with a pmhx of htn, ESRD on HD (MWF), and dm s/p recent cholecystectomy in [place] one month ago who was recently admitted to outside hospital one week ago for cough and sob with diagnosis made of pna. Treated with Abx and sent home. Reports that she has been sob and not feeling well since she went home. Biggest issue seems to be sob with lying down and cannot sleep as a result. Some mid-epigastric discomfort. On Wednesday, dialysis was cut short as she was not feeling well. Here, afebrile with WBC 12.7. CXR: extensive pulmonary and infiltrative changes. Troponins 0.5 EKG: sinus with nonspecific T wave changes As per chart, Echocardiogram done on 07/13/17: mildly reduced lvef 45-49%. left atrial dilatation, moderate MR with mild MS, mild TR, mild pulm htn. No pericardial effusion. Chest CT on 07/14/17: mod b/l pleuraleffusions, b/l upper and lower lobe infiltrates, multiple low-density lesions of the liver. Chest CT 07/19/17: b/l patchy airspace disease/pneumonia with bibasal consolidation, right more than left and small b/l pleural effusion, right more than left 1) Admitted for SOB Volume overloaded with concern for pna on Chest CT Abx as per ID team. Take into consideration baseline QTc on ekg -Would continue to remove volume with dialysis as still volume overloaded on exam -BP controlled on metoprolol and amlodipine so would continue. -Echocardiogram only done last week at outside hospital with LVEF 45-49% and moderate MR. Goal is bp control and volume removal. No further cardiac intervention for Troponins 0.5. No acute ekg changes and no active chest pain. On aspirin/beta yoel/statin. Trend H/h as went down yesterday and follow up with primary team.
[2017-07-20] MEDS: ASPIRIN COATED 81 MG TABLET.EC PO SCH (10:53)
[2017-07-20] MEDS: SEVELAMER CARBONATE 800 MG TAB (FP) PO SCH ×3 (10:53→17:50)
[2017-07-20] MEDS: PANTOPRAZOLE 20 MG TABLET (FP) PO SCH (10:54)
[2017-07-20] MEDS: amLODIPine BESYLATE 5 MG TABLET (FP) PO SCH (10:54)
--- NOTE | 2017-07-20 11:05 | CONSULT ---
Consult Consult Specialty:: Hematology - History of Present Illness History of Present Illness: 72y F hx of ESRD (MWF, last dialysis on Wed shortened to 2hr due to ont feeling well), htn, recent dx of pna and was hospitalized at [facility] for PNA, and dc on wednesday, currently on abx. Pt notes she has not felt significantly better, and family noted pt was more short of breath so brought pt to the ED for evaluation. pt does endorse a mid epigastric/chest discomfort for the past few adys as wella s orthopnea. pt endorses a poor appettie, and some nausea w/o vomiting. The pt endorses a cough productive of whitish sputum, no associated fever/chills, leg swelling, abd pain, back pain, hemoptysis, numbness/tingling. Hematology consulted for anemia pt seen and examined - History Source History Provided By: Patient, Family Member, Medical Record - Past Medical History Cardio/Vascular: Yes: HTN Renal/: Yes: Renal Failure, Hemodialysis - Alcohol/Substance Use Hx Alcohol Use: No - Smoking History Smoking history: Never smoked Have you smoked in the past 12 months: No - Social History Usual Living Arrangement: With Child History of Recent Travel: Yes (retuened from [place] 3 weeks ago) Home Medications - Allergies Allergies/Adverse Reactions: Allergies Allergy/AdvReac Type Severity Reaction Status Date / Time Penicillins Allergy Unknown Hives Verified 07/19/17 13:28 - Home Medications Home Medications: Ambulatory Orders Amlodipine Besylate [Norvasc -] 5 mg PO DAILY 09/25/14 Sevelamer HCl [Renagel] 2,400 mg PO TID 09/25/14 Aspirin [Aspirin EC] 81 mg PO DAILY 07/18/17 Calcium Acetate [Phoslyra] 3 tab PO TID 07/18/17 Doxycycline Hyclate [Vibramycin] 100 mg PO BID 07/18/17 Metoclopramide HCl [Reglan] 5 mg PO ACHS 07/18/17 Metoprolol Succinate [Toprol Xl] 50 mg PO DAILY 07/18/17 Pantoprazole Sodium [Protonix -] 40 mg PO DAILY 07/18/17 Vit B Comp No.3/Folic/C/Biotin [Leyla-Tunde Rx Tablet] 1 each PO DAILY 07/18/17 Physical Exam Vital Signs: Vital Signs Temperature 98.5 F 07/20/17 07:30 Pulse Rate 73 07/20/17 09:40 Respiratory Rate 1 L 07/20/17 09:40 Blood Pressure 112/55 07/20/17 09:40 O2 Sat by Pulse Oximetry (%) 94 L 07/20/17 08:02 Constitutional: Yes: No Distress, Calm Eyes: Yes: Conjunctiva Clear HENT: Yes: Atraumatic, Normocephalic Neck: Yes: Supple Cardiovascular: Yes: Regular Rate and Rhythm Respiratory: Yes: Regular, CTA Bilaterally Gastrointestinal: Yes: Normal Bowel Sounds, Soft Extremities: Yes: WNL Edema: No Labs: CBC, BMP 07/19/17 07:20 Assessment/Plan Chronic Macrocytic anemia: likely in the setting ESRD already received Procrit/Venofer will need to continue the same f/u iron w/u
[2017-07-20 11:11] LABS: HEMATOCRIT 27.8 % (32.4-45.2); HEMOGLOBIN 9.6 GM/dL (10.7-15.3); MCH 35.2 pg (25.7-33.7); MCHC 34.6 g/dl (32.0-36.0); MEAN CELL VOLUME 101.8 fl (80-96); MEAN PLT VOLUME 9.7 fl (7.5-11.1); PLATELET COUNT 503 K/MM3 (134-434); RBC 2.74 M/mm3 (3.60-5.2); RDW 14.6 % (11.6-15.6); WHITE BLOOD COUNT 8.2 K/mm3 (4.0-10.0)
--- NOTE | 2017-07-20 12:49 | PN ---
Progress Note (short form) - Note Progress Note: PULMONARY CONSULTATION DICTAED 07/20/17 IMP ACUTE HYPOXEMIC RESPIRATORY FAILURE BILATERAL PATCHY INFILTRATES ?INFECTIOUS? INFLAMMATORY,?BOOP,?VASCULITIS ESRD ON HD CHF HTN DM PLAN HD PER RENAL ABX PER ID STEROIDS INHALED BRONCHODILATORS O2 TO MAINTAIN SAT 92%OR GREATER STRICT I+OS SEROLOGY F/O CHEST X-RAYS AND CHEST CT TO DOCUMENT RESOLUTION OF INFILTRATES DR MULLEN Problem List - Problems (1) HTN (hypertension) Code(s): I10 - ESSENTIAL (PRIMARY) HYPERTENSION (2) ESRD (end stage renal disease) on dialysis Code(s): N18.6 - END STAGE RENAL DISEASE; Z99.2 - DEPENDENCE ON RENAL DIALYSIS (3) Hypoxia Code(s): R09.02 - HYPOXEMIA (4) Penicillin allergy Code(s): Z88.0 - ALLERGY STATUS TO PENICILLIN (5) Pneumonia Code(s): J18.9 - PNEUMONIA, UNSPECIFIED ORGANISM (6) Diabetes Code(s): E11.9 - TYPE 2 DIABETES MELLITUS WITHOUT COMPLICATIONS (7) Diabetes Code(s): E11.9 - TYPE 2 DIABETES MELLITUS WITHOUT COMPLICATIONS (8) Acute hypoxemic respiratory failure Code(s): J96.01 - ACUTE RESPIRATORY FAILURE WITH HYPOXIA
--- NOTE | 2017-07-20 13:54 | CONS ---
DATE OF CONSULTATION: 07/20/2017 The patient is a 72-year-old female with past medical history of hypertension, end-stage renal disease on hemodialysis 3 times weekly, diabetes, status post recent cholecystectomy while in [place] 1 month ago. Returned home a few weeks ago and was subsequently readmitted to [facility] with complaint of shortness of breath, cough, and runny nose. While at [facility], she was placed on broad-spectrum antibiotics and hospitalized for 5 days. She was discharged home on oral antibiotics. Patient, on the CAT scan review at [facility], was noted to have evidence of moderate bilateral pleural effusions which were possibly loculated and extensive bilateral upper and lower lobe infiltrates and cardiomegaly with vascular congestive changes. She was also noted to have multiple low-density lesions in the liver. Patient was discharged home from [facility] in a stable condition, but she then started developing increasing shortness of breath and cough productive of clear, occasionally yellow sputum, at which time, she presented to [facility] ER. She complains of dyspnea on exertion with a short distance. She is unable to lie down secondary to shortness of breath. She also complains of some mild epigastric discomfort. Of note is on Wednesday prior to this admission, her dialysis was cut short secondary to not feeling well. On admission, she was noted to have bilateral pulmonary infiltrates. She underwent a CAT scan of the chest which revealed extensive bilateral patchy airspace disease and bibasilar consolidations and small bilateral pleural effusions, right greater than left. She was also noted to have diffuse pulmonary nodules in the right middle lobe and left upper lobe. Patient was evaluated by Infectious Disease and placed on broad-spectrum antibiotics. During her previous hospitalization, the patient again was noted to have mild CHF on echocardiogram and ejection fraction of 45%. Patient denies any history of DVT or PE in the past. She is a nonsmoker. There is no history of occupational exposure to chemicals or fumes. She was born in [facility] and initially moved to the [facility] 3 years ago. She has been going back and forth over the past 3 years every 6 months or so. She denies any history of TB. Denies any fevers or night sweats, weight loss, or hemoptysis. Denies any chest pains or palpitations. She does have cough. There is no history of respiratory failure in the past or ventilatory support. PAST MEDICAL HISTORY: Again includes end-stage renal disease on hemodialysis 3 times weekly, hypertension, diabetes. SOCIAL HISTORY: Born in [place], moved to the [place] 3 years ago. Twelve children alive and well. No occupational exposures. CURRENT MEDICATIONS: Include Azactam, heparin, Toprol, Norvasc, Ecotrin, Renvela, Reglan, and Protonix. REVIEW OF SYSTEMS: Positive shortness of breath. Positive cough. No chest pain. No palpitations. No abdominal pain. No lower extremity edema. No weight loss. No night sweats. No hemoptysis. PHYSICAL EXAMINATION: General: The patient is an elderly female, thin, well developed, awake, alert, in no acute distress. Vital Signs: She is afebrile. Blood pressure is 109/59. Respiratory rate is 18. O2 saturation is 94% on 3 L. HEENT: Exam is normocephalic, atraumatic. Neck: Supple. Heart: Regular. S1, S2. Chest: Bilateral crackles. Abdomen: Soft. Bowel sounds are positive. Extremities: No cyanosis or edema. LABORATORIES: WBC is 8.2, hemoglobin 9.6, hematocrit 27.8, platelet count of 503,000. INR is 1.24. Venous blood gas shows 7.34, PCO2 of 39, a PO2 of 41, bicarbonate of 20. BUN is 21, creatinine 3.8. Troponin 0.54. is 1161. Free T4 is 1.57. Serology: Hepatitis C, TB, QuantiFERON pending. Chest CT shows extensive bilateral patchy infiltrates, small bilateral pleural effusions, and small pulmonary nodules. IMPRESSION: 1. Bilateral pulmonary infiltrates; etiology to be determined. Cannot exclude possible infectious etiology, although patient appears without a fever or elevated white count. Cannot exclude possible inflammatory. Consider possibly bronchiolitis obliterans organizing pneumonia, rule out possible vasculitis. 2. End-stage renal disease on hemodialysis. 3. Likely a component of congestive heart failure. 4. Hypertension. 5. Diabetes. PLAN: Antibiotics as per Infectious Disease, supplemental O2 to maintain O2 saturations at 90% or greater. a short course of steroids. Hemodialysis as per Renal. Obtain serology, c-ANCA, p-ANCA, MARITA. Obtain cultures. QuantiFERON pending. Obtain followup chest x-rays as well as chest CTs to document resolution. ESPERANZA MULLEN M.D. [id number]
--- NOTE | 2017-07-20 14:21 | PN ---
Progress Note, Physician History of Present Illness: Patient seen and examined while getting dialysis. Patient states she feels better and her breathing is easier. - Current Medication List Current Medications: Active Medications Amlodipine Besylate (Norvasc -) 5 mg PO DAILY [facility] Last Admin: 07/20/17 10:54 Dose: 5 mg Aspirin (Ecotrin -) 81 mg PO DAILY [facility] Last Admin: 07/20/17 10:53 Dose: 81 mg Heparin Sodium (Porcine) (Heparin -) 5,000 unit SQ TID [facility] Last Admin: 07/20/17 13:27 Dose: 5,000 unit Aztreonam 0.5 gm/ Dextrose 50 mls @ 100 mls/hr IVPB BID@0600,1800 [facility] PRN Reason: Protocol Last Admin: 07/20/17 05:57 Dose: 100 mls/hr Metoclopramide HCl (Reglan -) 5 mg PO ACHS [facility] Last Admin: 07/20/17 10:54 Dose: 5 mg Metoprolol Succinate (Toprol Xl -) 50 mg PO DAILY [facility] Last Admin: 07/20/17 10:53 Dose: 50 mg Pantoprazole Sodium (Protonix -) 40 mg PO DAILY [facility] Last Admin: 07/20/17 10:54 Dose: 40 mg Sevelamer Carbonate (Renvela -) 2,400 mg PO TIDCM [facility] Last Admin: 07/20/17 12:29 Dose: 2,400 mg - Objective Vital Signs: Vital Signs Temperature 98.2 F 07/20/17 10:30 Pulse Rate 87 07/20/17 10:30 Respiratory Rate 18 07/20/17 10:30 Blood Pressure 109/59 07/20/17 10:30 O2 Sat by Pulse Oximetry (%) 94 L 07/20/17 08:02 Constitutional: Yes: Well Nourished, No Distress, Calm Neck: Yes: Supple, Trachea Midline Cardiovascular: Yes: Regular Rate and Rhythm, S1, S2. No: JVD, Gallop, Murmur, Rub Respiratory: Yes: Regular, CTA Bilaterally Gastrointestinal: Yes: Normal Bowel Sounds, Soft Labs: CBC, BMP 07/20/17 10:00 07/19/17 07:20 INR, PTT INR 1.24 (0.82-1.09) H 07/18/17 13:54 Assessment/Plan The Patient is a 72 yo f w/ PMH HTN, ESRD on HD who is admitted for the treatment of pneumonia. #Pneumonia -s/p Vancomycin 1g in ED and Levaquin 750mg in ED -patient's creatinine clearance is 11; these medications are likely still at therapeutic levels -will obtain random Vanc level in AM and titrate dose appropriately -QTc 493; use caution with administration of Levaquin -CT Chest shows patchy airspace disease and pleural effusions; largely unchanged from CT done at [facility]. -In light of her refractory infiltrates as well as her history of frequent travel to endemic area of [place], will work the patient up for alternate Dx -Will place the patient on airbourne precautions -will send C-ANCA and P-ANCA -Will send sputum for AFB and LEIF x3 -will send MARITA and ESR -will send Histoplasma serum antigen -c/w Azactam .5gm BID for now -f/u Quantiferon gold r/o TB -random Vanc level 19; will rpt in am and dose accordingly
--- NOTE | 2017-07-20 14:40 | PN ---
Progress Note, Physician Chief Complaint: DR MARIA FROM ID ORDERED PATIENT ISOLATION FOR TB PRECAUTIONS PATIENT AWAKE ALERT FAMILY BEDSIDE COMFORTABLE - Current Medication List Current Medications: Active Medications Amlodipine Besylate (Norvasc -) 5 mg PO DAILY [facility] Last Admin: 07/20/17 10:54 Dose: 5 mg Aspirin (Ecotrin -) 81 mg PO DAILY [facility] Last Admin: 07/20/17 10:53 Dose: 81 mg Heparin Sodium (Porcine) (Heparin -) 5,000 unit SQ TID [facility] Last Admin: 07/20/17 13:27 Dose: 5,000 unit Aztreonam 0.5 gm/ Dextrose 50 mls @ 100 mls/hr IVPB BID@0600,1800 [facility] PRN Reason: Protocol Last Admin: 07/20/17 05:57 Dose: 100 mls/hr Metoclopramide HCl (Reglan -) 5 mg PO ACHS [facility] Last Admin: 07/20/17 10:54 Dose: 5 mg Metoprolol Succinate (Toprol Xl -) 50 mg PO DAILY [facility] Last Admin: 07/20/17 10:53 Dose: 50 mg Pantoprazole Sodium (Protonix -) 40 mg PO DAILY [facility] Last Admin: 07/20/17 10:54 Dose: 40 mg Sevelamer Carbonate (Renvela -) 2,400 mg PO TIDCM [facility] Last Admin: 07/20/17 12:29 Dose: 2,400 mg - Objective Vital Signs: Vital Signs Temperature 98.2 F 07/20/17 10:30 Pulse Rate 87 07/20/17 10:30 Respiratory Rate 18 07/20/17 10:30 Blood Pressure 109/59 07/20/17 10:30 O2 Sat by Pulse Oximetry (%) 94 L 07/20/17 08:02 Constitutional: Yes: No Distress Eyes: Yes: WNL HENT: Yes: WNL Neck: Yes: WNL Cardiovascular: Yes: WNL Respiratory: Yes: Diminished Gastrointestinal: Yes: WNL Genitourinary: Yes: Other Musculoskeletal: Yes: Muscle Weakness Extremities: Yes: WNL Edema: No Peripheral Pulses WNL: Yes Integumentary: Yes: WNL Wound/Incision: Yes: Clean/Dry Neurological: Yes: WNL ...Motor Strength: LLE, RLE Psychiatric: Yes: WNL Labs: CBC, BMP 07/20/17 10:00 07/19/17 07:20 INR, PTT INR 1.24 (0.82-1.09) H 07/18/17 13:54 Problem List - Problems (1) ESRD (end stage renal disease) on dialysis Code(s): N18.6 - END STAGE RENAL DISEASE; Z99.2 - DEPENDENCE ON RENAL DIALYSIS (2) End stage chronic kidney disease Code(s): N18.6 - END STAGE RENAL DISEASE (3) Fluid overload, unspecified Code(s): E87.70 - FLUID OVERLOAD, UNSPECIFIED Qualifiers: Hypervolemia type: unspecified Qualified Code(s): E87.70 - Fluid overload, unspecified (4) Hypoxia Code(s): R09.02 - HYPOXEMIA (5) Pneumonia Code(s): J18.9 - PNEUMONIA, UNSPECIFIED ORGANISM Assessment/Plan TB ISOLAION ID WORKUP OOB TO CHAIR DVT PROPHYLAXIS ON ABX FOR PNA NEBS ESRD HD PER RENAL
--- NOTE | 2017-07-20 16:00 | PN ---
Teaching Attending Note Name of Resident: José Miguel Stone ATTENDING PHYSICIAN STATEMENT I saw and evaluated the patient. I reviewed the resident's note and discussed the case with the resident. I agree with the resident's findings and plan as documented. SUBJECTIVE: chest ct reviewed with radiology bilateral alveolar infiltrates OBJECTIVE: Vital Signs Period Temp Pulse Resp BP Sys/Barnard Pulse Ox Last 24 Hr 97.8 F-100.3 F 68-88 18-18 109-158/55-82 93-94 cor-rrr lungs bibasilar crackles abd soft,nt ext no edema CBC, BMP 07/20/17 10:00 07/19/17 07:20 Laboratory Tests 07/20/17 07:30 Random Vancomycin 19.260 ASSESSMENT AND PLAN: Bilateral infiltrates in elderly female on HD recently from [place] will place in afb isolation sputum induction for afb anca, barry esr continue vanco/azactam called prior hospital, no sputums sent pen allergy noted d/w pulmonary- to hold steroids for now d/w Dr Peña d/w family Problem List - Problems (1) Pneumonia Code(s): J18.9 - PNEUMONIA, UNSPECIFIED ORGANISM (2) Fluid overload, unspecified Code(s): E87.70 - FLUID OVERLOAD, UNSPECIFIED Qualifiers: Hypervolemia type: unspecified Qualified Code(s): E87.70 - Fluid overload, unspecified (3) ESRD (end stage renal disease) on dialysis Code(s): N18.6 - END STAGE RENAL DISEASE; Z99.2 - DEPENDENCE ON RENAL DIALYSIS (4) Penicillin allergy Code(s): Z88.0 - ALLERGY STATUS TO PENICILLIN
--- NOTE | 2017-07-20 18:25 | PN ---
Progress Note (short form) - Note Progress Note: 72 year-old female from [place] on hd for 6 years dialyzed today 3 hr k2 ca2.[address] shows bilateral infiltrates on abx sputum for FB on nasal cannula next HD thurs On exam no edema d/w family
[2017-07-20] MEDS ORDERED: ACETAMINOPHEN 325 MG TABLET (FP) PO PRN (22:21)
[2017-07-21] MEDS: HEPARIN NA (PORCINE) 5,000 UNITS/ML 1ML VIAL SQ SCH ×3 (05:12→21:02)
[2017-07-21] MEDS: AZTREONAM 0.5 GM in DEXTROSE 5%-WATER - 50 ML IVPB SCH ×2 (05:12→17:50)
[2017-07-21] MEDS: METOCLOPRAMIDE HCL 10 MG TABLET (FP) PO SCH ×4 (06:00→21:02)
[2017-07-21 06:09] LABS: HBSAG SCREEN Negative (Negative); HEP A AB, IGM Negative (Negative); HEP B CORE AB, TOT Negative (Negative)
[2017-07-21] MEDS ORDERED: PT OWN MED DRAWER 7, Y5N ONE ×2 (08:56→17:18)
[2017-07-21] MEDS: SEVELAMER CARBONATE 800 MG TAB (FP) PO SCH ×3 (09:00→17:50)
[2017-07-21] MEDS: ASPIRIN COATED 81 MG TABLET.EC PO SCH (09:00)
[2017-07-21] MEDS: amLODIPine BESYLATE 5 MG TABLET (FP) PO SCH (09:01)
[2017-07-21] MEDS: PANTOPRAZOLE 20 MG TABLET (FP) PO SCH (09:01)
--- NOTE | 2017-07-21 11:21 | PN ---
Progress Note, Physician Chief Complaint: ASLEEP COMFORTABLE ISOLATION ORDERED PER ID FOR RESPIRATORY ILLNESSES? - Current Medication List Current Medications: Active Medications Acetaminophen (Tylenol -) 650 mg PO Q6H PRN PRN Reason: FEVER Last Admin: 07/20/17 22:42 Dose: 650 mg Amlodipine Besylate (Norvasc -) 5 mg PO DAILY [facility] Last Admin: 07/21/17 09:01 Dose: 5 mg Aspirin (Ecotrin -) 81 mg PO DAILY [facility] Last Admin: 07/21/17 09:00 Dose: 81 mg Heparin Sodium (Porcine) (Heparin -) 5,000 unit SQ TID [facility] Last Admin: 07/21/17 05:12 Dose: 5,000 unit Aztreonam 0.5 gm/ Dextrose 50 mls @ 100 mls/hr IVPB BID@0600,1800 [facility] PRN Reason: Protocol Last Admin: 07/21/17 05:12 Dose: 100 mls/hr Metoclopramide HCl (Reglan -) 5 mg PO ACHS [facility] Last Admin: 07/21/17 06:00 Dose: 5 mg Metoprolol Succinate (Toprol Xl -) 50 mg PO DAILY [facility] Last Admin: 07/21/17 09:00 Dose: 50 mg Pantoprazole Sodium (Protonix -) 40 mg PO DAILY [facility] Last Admin: 07/21/17 09:01 Dose: 40 mg Sevelamer Carbonate (Renvela -) 2,400 mg PO TIDCM [facility] Last Admin: 07/21/17 09:00 Dose: 2,400 mg - Objective Vital Signs: Vital Signs Temperature 98.4 F 07/21/17 09:37 Pulse Rate 67 07/21/17 09:37 Respiratory Rate 18 07/21/17 09:37 Blood Pressure 148/72 07/21/17 09:37 O2 Sat by Pulse Oximetry (%) 95 07/21/17 08:40 Constitutional: Yes: No Distress Eyes: Yes: WNL HENT: Yes: WNL Neck: Yes: WNL Respiratory: Yes: Diminished Gastrointestinal: Yes: WNL Genitourinary: Yes: Other Musculoskeletal: Yes: Muscle Weakness Extremities: Yes: WNL Edema: No Peripheral Pulses WNL: Yes Integumentary: Yes: WNL Wound/Incision: Yes: Clean/Dry Neurological: Yes: WNL, Weakness ...Motor Strength: WNL Psychiatric: Yes: WNL Labs: CBC, BMP 07/20/17 10:00 07/19/17 07:20 INR, PTT INR 1.24 (0.82-1.09) H 07/18/17 13:54 Problem List - Problems (1) ESRD (end stage renal disease) on dialysis Code(s): N18.6 - END STAGE RENAL DISEASE; Z99.2 - DEPENDENCE ON RENAL DIALYSIS (2) End stage chronic kidney disease Code(s): N18.6 - END STAGE RENAL DISEASE (3) Fluid overload, unspecified Code(s): E87.70 - FLUID OVERLOAD, UNSPECIFIED Qualifiers: Hypervolemia type: unspecified Qualified Code(s): E87.70 - Fluid overload, unspecified (4) Hypoxia Code(s): R09.02 - HYPOXEMIA (5) Pneumonia Code(s): J18.9 - PNEUMONIA, UNSPECIFIED ORGANISM Assessment/Plan TB ISOLAION ID WORKUP OOB TO CHAIR DVT PROPHYLAXIS ON ABX FOR PNA NEBS ESRD HD PER RENAL
--- NOTE | 2017-07-21 11:41 | PN ---
Progress Note, Physician History of Present Illness: Infectious disease consultation follow up: Patient seen and examined at bedside. Patient states she feels better and her breathing is easier. - Current Medication List Current Medications: Active Medications Acetaminophen (Tylenol -) 650 mg PO Q6H PRN PRN Reason: FEVER Last Admin: 07/20/17 22:42 Dose: 650 mg Amlodipine Besylate (Norvasc -) 5 mg PO DAILY [facility] Last Admin: 07/21/17 09:01 Dose: 5 mg Aspirin (Ecotrin -) 81 mg PO DAILY [facility] Last Admin: 07/21/17 09:00 Dose: 81 mg Heparin Sodium (Porcine) (Heparin -) 5,000 unit SQ TID [facility] Last Admin: 07/21/17 05:12 Dose: 5,000 unit Aztreonam 0.5 gm/ Dextrose 50 mls @ 100 mls/hr IVPB BID@0600,1800 [facility] PRN Reason: Protocol Last Admin: 07/21/17 05:12 Dose: 100 mls/hr Metoclopramide HCl (Reglan -) 5 mg PO ACHS [facility] Last Admin: 07/21/17 06:00 Dose: 5 mg Metoprolol Succinate (Toprol Xl -) 50 mg PO DAILY [facility] Last Admin: 07/21/17 09:00 Dose: 50 mg Pantoprazole Sodium (Protonix -) 40 mg PO DAILY [facility] Last Admin: 07/21/17 09:01 Dose: 40 mg Sevelamer Carbonate (Renvela -) 2,400 mg PO TIDCM [facility] Last Admin: 07/21/17 09:00 Dose: 2,400 mg - Objective Vital Signs: Vital Signs Temperature 98.4 F 07/21/17 09:37 Pulse Rate 67 07/21/17 09:37 Respiratory Rate 18 07/21/17 09:37 Blood Pressure 148/72 07/21/17 09:37 O2 Sat by Pulse Oximetry (%) 95 07/21/17 08:40 Constitutional: Yes: Well Nourished, No Distress, Calm HENT: Yes: Atraumatic, Normocephalic Cardiovascular: Yes: Regular Rate and Rhythm, S1, S2. No: JVD, Gallop, Murmur, Rub Respiratory: Yes: Regular, Other (inspiratory crackles b/l) Gastrointestinal: Yes: Normal Bowel Sounds, Soft Labs: CBC, BMP 07/20/17 10:00 05/07/18 07:20 INR, PTT INR 1.24 (0.82-1.09) H 07/18/17 13:54 Assessment/Plan The Patient is a 72 yo f w/ PMH HTN, ESRD on HD who is admitted for the treatment of pneumonia. #Pneumonia -QTc 493; use caution with administration of Levaquin -f/u vancomycin trough; dose accordingly -CT Chest shows patchy airspace disease and pleural effusions; largely unchanged from CT done at [facility]. -Patient on airbourne precautions -f/u C-ANCA and P-ANCA -f/u sputum for AFB and LEIF x3 -f/u MARITA and ESR -f/u Histoplasma serum antigen -c/w Azactam .5gm BID for now -f/u Quantiferon gold r/o TB
--- NOTE | 2017-07-21 12:38 | PN ---
Progress Note, Physician History of Present Illness: PULMONARY ALERT,FEELING BETTER,STILL CONGESTED - Current Medication List Current Medications: Active Medications Acetaminophen (Tylenol -) 650 mg PO Q6H PRN PRN Reason: FEVER Last Admin: 07/20/17 22:42 Dose: 650 mg Amlodipine Besylate (Norvasc -) 5 mg PO DAILY [facility] Last Admin: 07/21/17 09:01 Dose: 5 mg Aspirin (Ecotrin -) 81 mg PO DAILY [facility] Last Admin: 07/21/17 09:00 Dose: 81 mg Heparin Sodium (Porcine) (Heparin -) 5,000 unit SQ TID [facility] Last Admin: 07/21/17 05:12 Dose: 5,000 unit Aztreonam 0.5 gm/ Dextrose 50 mls @ 100 mls/hr IVPB BID@0600,1800 [facility] PRN Reason: Protocol Last Admin: 07/21/17 05:12 Dose: 100 mls/hr Metoclopramide HCl (Reglan -) 5 mg PO ACHS [facility] Last Admin: 07/21/17 11:57 Dose: 5 mg Metoprolol Succinate (Toprol Xl -) 50 mg PO DAILY [facility] Last Admin: 07/21/17 09:00 Dose: 50 mg Pantoprazole Sodium (Protonix -) 40 mg PO DAILY [facility] Last Admin: 07/21/17 09:01 Dose: 40 mg Sevelamer Carbonate (Renvela -) 2,400 mg PO TIDCM [facility] Last Admin: 07/21/17 11:58 Dose: 2,400 mg - Objective Vital Signs: Vital Signs Temperature 98.4 F 07/21/17 09:37 Pulse Rate 67 07/21/17 09:37 Respiratory Rate 18 07/21/17 09:37 Blood Pressure 148/72 07/21/17 09:37 O2 Sat by Pulse Oximetry (%) 95 07/21/17 08:40 Constitutional: Yes: Well Nourished, Calm Eyes: Yes: WNL HENT: Yes: WNL Neck: Yes: WNL Cardiovascular: Yes: Regular Rate and Rhythm, S1, S2 Respiratory: Yes: Rhonchi (SCATTERED JEAN CARLOS RHONCHI) Gastrointestinal: Yes: Normal Bowel Sounds, Soft Extremities: Yes: WNL Edema: No Labs: CBC, BMP 07/20/17 10:00 07/19/17 07:20 INR, PTT INR 1.24 (0.82-1.09) H 07/18/17 13:54 Problem List - Problems (1) HTN (hypertension) Code(s): I10 - ESSENTIAL (PRIMARY) HYPERTENSION (2) ESRD (end stage renal disease) on dialysis Code(s): N18.6 - END STAGE RENAL DISEASE; Z99.2 - DEPENDENCE ON RENAL DIALYSIS (3) Hypoxia Code(s): R09.02 - HYPOXEMIA (4) Penicillin allergy Code(s): Z88.0 - ALLERGY STATUS TO PENICILLIN (5) Pneumonia Code(s): J18.9 - PNEUMONIA, UNSPECIFIED ORGANISM (6) Diabetes Code(s): E11.9 - TYPE 2 DIABETES MELLITUS WITHOUT COMPLICATIONS (7) Diabetes Code(s): E11.9 - TYPE 2 DIABETES MELLITUS WITHOUT COMPLICATIONS (8) Acute hypoxemic respiratory failure Code(s): J96.01 - ACUTE RESPIRATORY FAILURE WITH HYPOXIA Assessment/Plan IMP ACUTE HYPOXEMIC RESPIRATORY FAILURE BILATERAL PATCHY INFILTRATES ?INFECTIOUS? INFLAMMATORY,?BOOP,?VASCULITIS ESRD ON HD CHF HTN DM PLAN HD PER RENAL ABX PER ID INHALED BRONCHODILATORS O2 TO MAINTAIN SAT 92%OR GREATER STRICT I+OS SEROLOGY F/O CHEST X-RAYS AND CHEST CT TO DOCUMENT RESOLUTION OF INFILTRATES DR MULLEN Problem List - Problems (1) HTN (hypertension) Code(s): I10 - ESSENTIAL (PRIMARY) HYPERTENSION (2) ESRD (end stage renal disease) on dialysis Code(s): N18.6 - END STAGE RENAL DISEASE; Z99.2 - DEPENDENCE ON RENAL DIALYSIS (3) Hypoxia Code(s): R09.02 - HYPOXEMIA (4) Penicillin allergy Code(s): Z88.0 - ALLERGY STATUS TO PENICILLIN (5) Pneumonia Code(s): J18.9 - PNEUMONIA, UNSPECIFIED ORGANISM (6) Diabetes Code(s): E11.9 - TYPE 2 DIABETES MELLITUS WITHOUT COMPLICATIONS (7) Diabetes Code(s): E11.9 - TYPE 2 DIABETES MELLITUS WITHOUT COMPLICATIONS (8) Acute hypoxemic respiratory failure Code(s): J96.01 - ACUTE RESPIRATORY FAILURE WITH HYPOXIA
--- NOTE | 2017-07-21 15:01 | PN ---
Progress Note, Physician Chief Complaint: SOB improved More energy today History of Present Illness: 72 year old female with a pmhx of htn, ESRD on HD (MWF), and dm s/p recent cholecystectomy in [place] one month ago who was recently admitted to outside hospital one week ago for cough and sob with diagnosis made of pna. Treated with Abx and sent home. Reports that she has been sob and not feeling well since she went home. Biggest issue seems to be sob with lying down and cannot sleep as a result. Some mid-epigastric discomfort. On Wednesday, dialysis was cut short as she was not feeling well. Here, afebrile with WBC 12.7. CXR: extensive pulmonary and infiltrative changes. Troponins 0.5 EKG: sinus with nonspecific T wave changes As per chart, Echocardiogram done on 07/13/17: mildly reduced lvef 45-49%. left atrial dilatation, moderate MR with mild MS, mild TR, mild pulm htn. No pericardial effusion. Chest CT on 07/14/17: mod b/l pleuraleffusions, b/l upper and lower lobe infiltrates, multiple low-density lesions of the liver. - Current Medication List Current Medications: Active Medications Acetaminophen (Tylenol -) 650 mg PO Q6H PRN PRN Reason: FEVER Last Admin: 07/20/17 22:42 Dose: 650 mg Amlodipine Besylate (Norvasc -) 5 mg PO DAILY [facility] Last Admin: 07/21/17 09:01 Dose: 5 mg Aspirin (Ecotrin -) 81 mg PO DAILY [facility] Last Admin: 07/21/17 09:00 Dose: 81 mg Heparin Sodium (Porcine) (Heparin -) 5,000 unit SQ TID [facility] Last Admin: 07/21/17 05:12 Dose: 5,000 unit Aztreonam 0.5 gm/ Dextrose 50 mls @ 100 mls/hr IVPB BID@0600,1800 [facility] PRN Reason: Protocol Last Admin: 07/21/17 05:12 Dose: 100 mls/hr Metoclopramide HCl (Reglan -) 5 mg PO ACHS [facility] Last Admin: 07/21/17 11:57 Dose: 5 mg Metoprolol Succinate (Toprol Xl -) 50 mg PO DAILY [facility] Last Admin: 07/21/17 09:00 Dose: 50 mg Pantoprazole Sodium (Protonix -) 40 mg PO DAILY [facility] Last Admin: 07/21/17 09:01 Dose: 40 mg Sevelamer Carbonate (Renvela -) 2,400 mg PO TIDCM [facility] Last Admin: 07/21/17 11:58 Dose: 2,400 mg - Objective Vital Signs: Vital Signs Temperature 98.4 F 07/21/17 09:37 Pulse Rate 67 07/21/17 09:37 Respiratory Rate 18 07/21/17 09:37 Blood Pressure 148/72 07/21/17 09:37 O2 Sat by Pulse Oximetry (%) 95 07/21/17 08:40 Constitutional: Yes: Cachectic Neck: Yes: Supple Cardiovascular: Yes: Regular Rate and Rhythm, JVD, Murmur (2/6 HSM upper sternal border), S1, S2 Respiratory: Yes: Rales Gastrointestinal: Yes: Normal Bowel Sounds, Soft Edema: No Labs: CBC, BMP 07/20/17 10:00 07/19/17 07:20 INR, PTT INR 1.24 (0.82-1.09) H 07/18/17 13:54 Problem List - Problems (1) Chest pain Code(s): R07.9 - CHEST PAIN, UNSPECIFIED Qualifiers: Chest pain type: unspecified Qualified Code(s): R07.9 - Chest pain, unspecified (2) ESRD (end stage renal disease) on dialysis Code(s): N18.6 - END STAGE RENAL DISEASE; Z99.2 - DEPENDENCE ON RENAL DIALYSIS Assessment/Plan 72 year old female with a pmhx of htn, ESRD on HD (MWF), and dm s/p recent cholecystectomy in [place] one month ago who was recently admitted to outside hospital one week ago for cough and sob with diagnosis made of pna. Treated with Abx and sent home. Reports that she has been sob and not feeling well since she went home. Biggest issue seems to be sob with lying down and cannot sleep as a result. Some mid-epigastric discomfort. On Wednesday, dialysis was cut short as she was not feeling well. Here, afebrile with WBC 12.7. CXR: extensive pulmonary and infiltrative changes. Troponins 0.5 EKG: sinus with nonspecific T wave changes As per chart, Echocardiogram done on 07/13/17: mildly reduced lvef 45-49%. left atrial dilatation, moderate MR with mild MS, mild TR, mild pulm htn. No pericardial effusion. Chest CT on 07/14/17: mod b/l pleuraleffusions, b/l upper and lower lobe infiltrates, multiple low-density lesions of the liver. Chest CT 07/19/17: b/l patchy airspace disease/pneumonia with bibasal consolidation, right more than left and small b/l pleural effusion, right more than left 1) Admitted with Volume overload and pna Abx as per ID team. -Would continue to remove volume with dialysis but volume status improving and patient feeling much better -BP controlled on metoprolol and amlodipine so would continue. -Echocardiogram only done last week at outside hospital with LVEF 45-49% and moderate MR. Goal is bp control and volume removal. No further cardiac intervention for Troponins 0.5. No acute ekg changes and no active chest pain. On aspirin/beta yoel/statin. TB work up as per primary team. No further cardiac work up. Please call if any further questions or concerns
--- NOTE | 2017-07-21 16:02 | PN ---
Progress Note (short form) - Note Progress Note: 72 year-old female from [place] on hd for 6 years dialyzed YESTERDAY 2.5 REMOVED ON NC O2 SATS 100% FEELS BETTER OOB TO CHAIR HD IN AM AWAITS QUANTEFERON ON VANC AND AZACTAM
--- NOTE | 2017-07-21 16:13 | PN ---
Teaching Attending Note Name of Resident: José Miguel Stone ATTENDING PHYSICIAN STATEMENT I saw and evaluated the patient. I reviewed the resident's note and discussed the case with the resident. I agree with the resident's findings and plan as documented. SUBJECTIVE: feels well no sob OBJECTIVE: Vital Signs Period Temp Pulse Resp BP Sys/Barnard Pulse Ox Last 24 Hr 98.4 F-100.3 F 64-67 18-18 140-149/55-72 95-95 cor-rrr lungs no crackles today abd soft,nt ext no edema CBC, BMP 07/20/17 10:00 07/19/17 07:20 Microbiology 07/18/17 13:45 Blood - Peripheral Venous Blood Culture - Preliminary NO GROWTH OBTAINED AFTER 72 HOURS, INCUBATION TO CONTINUE FOR 2 DAYS. 07/18/17 14:00 Blood - Peripheral Venous Blood Culture - Preliminary NO GROWTH OBTAINED AFTER 72 HOURS, INCUBATION TO CONTINUE FOR 2 DAYS. ASSESSMENT AND PLAN: bilateral infiltrates-serologies pending attempting to collect sputum afb awaiting quantiferon results repeat cxray in [facility] by levels continue azactam Problem List - Problems (1) Pneumonia Code(s): J18.9 - PNEUMONIA, UNSPECIFIED ORGANISM (2) Fluid overload, unspecified Code(s): E87.70 - FLUID OVERLOAD, UNSPECIFIED Qualifiers: Hypervolemia type: unspecified Qualified Code(s): E87.70 - Fluid overload, unspecified (3) ESRD (end stage renal disease) on dialysis Code(s): N18.6 - END STAGE RENAL DISEASE; Z99.2 - DEPENDENCE ON RENAL DIALYSIS (4) Penicillin allergy Code(s): Z88.0 - ALLERGY STATUS TO PENICILLIN
[2017-07-22] MEDS: AZTREONAM 0.5 GM in DEXTROSE 5%-WATER - 50 ML IVPB SCH ×2 (05:49→17:04)
[2017-07-22] MEDS: HEPARIN NA (PORCINE) 5,000 UNITS/ML 1ML VIAL SQ SCH ×3 (05:50→21:07)
[2017-07-22] MEDS: METOCLOPRAMIDE HCL 10 MG TABLET (FP) PO SCH ×4 (06:13→21:07)
[2017-07-22] MEDS ORDERED: EPOETIN ALFA 10,000 UNIT/1 ML VIAL SQ ONE (08:00)
[2017-07-22] MEDS: SEVELAMER CARBONATE 800 MG TAB (FP) PO SCH ×3 (09:23→17:03)
--- NOTE | 2017-07-22 09:23 | PN ---
Progress Note, Physician History of Present Illness: Infectious disease consultation follow up: Patient seen and examined at bedside while on HD. Patient's breathing continues to improve daily. - Current Medication List Current Medications: Active Medications Acetaminophen (Tylenol -) 650 mg PO Q6H PRN PRN Reason: FEVER Last Admin: 07/20/17 22:42 Dose: 650 mg Amlodipine Besylate (Norvasc -) 5 mg PO DAILY [facility] Last Admin: 07/21/17 09:01 Dose: 5 mg Aspirin (Ecotrin -) 81 mg PO DAILY [facility] Last Admin: 07/21/17 09:00 Dose: 81 mg Heparin Sodium (Porcine) (Heparin -) 5,000 unit SQ TID [facility] Last Admin: 07/22/17 05:50 Dose: 5,000 unit Aztreonam 0.5 gm/ Dextrose 50 mls @ 100 mls/hr IVPB BID@0600,1800 [facility] PRN Reason: Protocol Last Admin: 07/22/17 05:49 Dose: 100 mls/hr Metoclopramide HCl (Reglan -) 5 mg PO ACHS [facility] Last Admin: 07/22/17 06:13 Dose: 5 mg Metoprolol Succinate (Toprol Xl -) 50 mg PO DAILY [facility] Last Admin: 07/21/17 09:00 Dose: 50 mg Pantoprazole Sodium (Protonix -) 40 mg PO DAILY [facility] Last Admin: 07/21/17 09:01 Dose: 40 mg Sevelamer Carbonate (Renvela -) 2,400 mg PO TIDCM [facility] Last Admin: 07/21/17 17:50 Dose: 2,400 mg - Objective Vital Signs: Vital Signs Temperature 98.8 F 07/22/17 06:45 Pulse Rate 79 07/22/17 08:50 Respiratory Rate 18 07/22/17 08:50 Blood Pressure 120/61 07/22/17 08:50 O2 Sat by Pulse Oximetry (%) 95 07/21/17 21:00 Constitutional: Yes: No Distress, Calm HENT: Yes: Atraumatic, Normocephalic Cardiovascular: Yes: Regular Rate and Rhythm, S1, S2. No: JVD, Gallop, Murmur, Rub Respiratory: Yes: Regular, Other (crackles in mid lung silverman and at bases) Gastrointestinal: Yes: Normal Bowel Sounds, Soft Neurological: Yes: Alert, Oriented Psychiatric: Yes: Alert, Oriented Labs: INR, PTT INR 1.24 (0.82-1.09) H 07/18/17 13:54 Assessment/Plan The Patient is a 72 yo f w/ PMH HTN, ESRD on HD who is admitted for the treatment of pneumonia. #Pneumonia -QTc 493; use caution with administration of Levaquin -f/u vancomycin trough low today, will dose w/ 1g today -CXR showed marked improvement from admission CXR -f/u C-ANCA and P-ANCA -f/u MARITA -f/u Histoplasma serum antigen -ESR elevated to 94 -c/w Azactam .5gm BID for now -Quantiferon negative -because patient improved so quickly and is not coughing at this time, elizabeth MCCLELLAND iso -case d/w Dr. michael
--- NOTE | 2017-07-22 09:25 | PN ---
Progress Note, Physician - Current Medication List Current Medications: Active Medications Acetaminophen (Tylenol -) 650 mg PO Q6H PRN PRN Reason: FEVER Last Admin: 07/20/17 22:42 Dose: 650 mg Amlodipine Besylate (Norvasc -) 5 mg PO DAILY [facility] Last Admin: 07/21/17 09:01 Dose: 5 mg Aspirin (Ecotrin -) 81 mg PO DAILY [facility] Last Admin: 07/21/17 09:00 Dose: 81 mg Heparin Sodium (Porcine) (Heparin -) 5,000 unit SQ TID [facility] Last Admin: 07/22/17 05:50 Dose: 5,000 unit Aztreonam 0.5 gm/ Dextrose 50 mls @ 100 mls/hr IVPB BID@0600,1800 [facility] PRN Reason: Protocol Last Admin: 07/22/17 05:49 Dose: 100 mls/hr Metoclopramide HCl (Reglan -) 5 mg PO ACHS [facility] Last Admin: 07/22/17 06:13 Dose: 5 mg Metoprolol Succinate (Toprol Xl -) 50 mg PO DAILY [facility] Last Admin: 07/21/17 09:00 Dose: 50 mg Pantoprazole Sodium (Protonix -) 40 mg PO DAILY [facility] Last Admin: 07/21/17 09:01 Dose: 40 mg Sevelamer Carbonate (Renvela -) 2,400 mg PO TIDCM [facility] Last Admin: 07/22/17 09:23 Dose: 2,400 mg - Objective Vital Signs: Vital Signs Temperature 98.8 F 07/22/17 06:45 Pulse Rate 61 07/22/17 09:20 Respiratory Rate 18 07/22/17 09:20 Blood Pressure 95/54 07/22/17 09:20 O2 Sat by Pulse Oximetry (%) 95 07/21/17 21:00 Cardiovascular: Yes: S1, S2 Respiratory: Yes: Rhonchi Gastrointestinal: Yes: Normal Bowel Sounds, Soft Labs: INR, PTT INR 1.24 (0.82-1.09) H 07/18/17 13:54 Assessment/Plan 72 year-old female with a PMH of HTN and ESRD. Discharged from OSH five days ago for pneumonia on PO antibiotics. Last HD session on 07/17 cut short. Admitted for hypoxic respiratory failure, ESRD, and pneumonia. Hypoxic respiratory failure secondary --likely multifactorial: volume overload +/- pneumonia --placed on NRB, satting 100% ESRD on HD --emergent dialysis --continue sevelamer Pneumonia --hospitalized for five days at [facility] for pneumonia, discharged on 07/14 on doxy BID --received levaquin and vanc in ED --penicillin allergic --ID consult placed --R/o tb--await quant gold Chest pressure --initial troponin elevated 0.17-0.54 --cardiology consult noted Hypertension --BP stable --continue amlodipine, Toprol XL DVT prophylais: subq heparin
--- NOTE | 2017-07-22 09:30 | PATH ---
Surgical Pathology Report Patient Name: LEVI UREÑA [facility]. Rec. #: [id number] /Age/Gender: 1945 (Age: 72) / F Account: [id number] Location: [facility] PEDS/ADOL Taken: 07/20/2017 Received: 07/20/2017 Reported: 07/22/2017 Physicians: Anibal Bajwa M.D. Specimen(s) Received PERIPHERAL BLOOD Clinical History Anemia Final Diagnosis COMPREHENSIVE FLOW CYTOMETRY performed and interpreted at [facility], [place], [place] ([id number]) INTERPRETATION: There is no evidence of B or T-cell proliferative disorders or increased blasts. Myelodysplasia FISH Panel performed and interpreted at [facility] in [place], [place] ([id number]) shows the following. INTERPRETATION: No evidence of deletion 5q or monosomy 5 is present. No evidence of deletion 7q or monosomy 7 is present. No evidence of trisomy 8 (+8) is present. No evidence of deletion 13q14.2 is present. No evidence of a rearrangement of 11q23. No evidence of a deletion of the p53 (17p13) locus. No evidence of deletion 20q12 is present. Comments: Correlation with pending cytogenetics ([id number]) is recommended. See Emerge report for details. Electronically Signed Guadalupe Goldman M.D. Addendum Reported: 08/02/2017 Addendum Diagnosis CYTOGENETIC KARYOTYPE ANALYSIS performed and interpreted at [facility] ([id number]) shows the following: RESULTS: TISSUE CULTURE FAILURE. INTERPRETATION: This unstimulated peripheral blood specimen did not produce any analyzable metaphase cells and, therefore, chromosome analysis is not possible. A bone marrow aspirate, when clinically appropriate, is recommended. See Emerge report for additional details ([id number]) Guadalupe Goldman M.D.
[2017-07-22 09:38] LABS: HEMATOCRIT 29.3 % (32.4-45.2); HEMOGLOBIN 10.1 GM/dL (10.7-15.3); MCH 35.1 pg (25.7-33.7); MCHC 34.6 g/dl (32.0-36.0); MEAN CELL VOLUME 101.5 fl (80-96); PLATELET COUNT 569 K/MM3 (134-434); RBC 2.88 M/mm3 (3.60-5.2); RDW 14.4 % (11.6-15.6)
[2017-07-22] MEDS ORDERED: PT OWN MED DRAWER 7, Y5N ONE (09:55)
[2017-07-22 10:06] LABS: ANION GAP 11 (8-16); BLOOD UREA NITROGEN 12 mg/dL (7-18); CALCIUM 8.2 mg/dL (8.5-10.1); CHLORIDE 99 mmol/L (98-107); CO2 30 mmol/L (21-32); CREATININE 1.8 mg/dL (0.55-1.02); GLUCOSE,RANDOM 160 mg/dL (74-106); SODIUM 140 mmol/L (136-145)
[2017-07-22] MEDS: ASPIRIN COATED 81 MG TABLET.EC PO SCH (10:22)
[2017-07-22] MEDS: PANTOPRAZOLE 20 MG TABLET (FP) PO SCH (10:22)
[2017-07-22] MEDS: amLODIPine BESYLATE 5 MG TABLET (FP) PO SCH (10:22)
[2017-07-22 10:29] LABS: POTASSIUM 2.7 mmol/L (3.5-5.1)
[2017-07-22] MEDS ORDERED: POTASSIUM CHLORIDE TABS 20 MEQ TABLET.ER (FP) PO ONE (11:18)
--- NOTE | 2017-07-22 12:31 | PN ---
Progress Note (short form) - Note Progress Note: PULMONARY States breathing is improving. +nonproductive cough. No fevers or chills. CXR this AM showing marked improvement from admission film. Last Vital Signs Temp Pulse Resp BP Pulse Ox 98.4 F 72 20 141/69 97 07/22/17 10:00 07/22/17 10:00 07/22/17 10:00 07/22/17 10:00 07/22/17 09:00 Intake & Output 07/19/17 07/20/17 07/21/17 07/22/17 23:59 23:59 23:59 23:59 Intake Total 425 450 410 Balance 425 450 410 Weight 47 kg Gen: NAD at rest Heart: RRR Lung: scattered rhonchi Abd: soft, nontender Ext: no edema CBC, BMP 07/22/17 09:00 07/22/17 09:00 Active Medications Acetaminophen (Tylenol -) 650 mg PO Q6H PRN PRN Reason: FEVER Last Admin: 07/20/17 22:42 Dose: 650 mg Amlodipine Besylate (Norvasc -) 5 mg PO DAILY [facility] Last Admin: 07/22/17 10:22 Dose: 5 mg Aspirin (Ecotrin -) 81 mg PO DAILY [facility] Last Admin: 07/22/17 10:22 Dose: 81 mg Heparin Sodium (Porcine) (Heparin -) 5,000 unit SQ TID [facility] Last Admin: 07/22/17 05:50 Dose: 5,000 unit Aztreonam 0.5 gm/ Dextrose 50 mls @ 100 mls/hr IVPB BID@0600,1800 [facility] PRN Reason: Protocol Last Admin: 07/22/17 05:49 Dose: 100 mls/hr Metoclopramide HCl (Reglan -) 5 mg PO ACHS [facility] Last Admin: 07/22/17 11:57 Dose: 5 mg Metoprolol Succinate (Toprol Xl -) 50 mg PO DAILY [facility] Last Admin: 07/22/17 10:22 Dose: 50 mg Pantoprazole Sodium (Protonix -) 40 mg PO DAILY [facility] Last Admin: 07/22/17 10:22 Dose: 40 mg Sevelamer Carbonate (Renvela -) 2,400 mg PO TIDCM [facility] Last Admin: 07/22/17 11:57 Dose: 2,400 mg A/P Acute Hypoxic Respiratory Failure r/o Pneumonia ESRD on HD r/o Acute Pulmonary Edema improving LV Systolic Dysfunction +Troponins HTN DM - continue HD per renal with ultrafiltration - continue empiric antibiotics - monitor CXR with continued HD - O2 to keep SpO2 >90% - DVT prophylaxis
--- NOTE | 2017-07-22 15:59 | PN ---
Teaching Attending Note Name of Resident: José Miguel Stone ATTENDING PHYSICIAN STATEMENT I saw and evaluated the patient. I reviewed the resident's note and discussed the case with the resident. I agree with the resident's findings and plan as documented. SUBJECTIVE: feels well no cough unable to induce sputum OBJECTIVE: Vital Signs Period Temp Pulse Resp BP Sys/Barnard Pulse Ox Last 24 Hr 98.4 F-98.8 F 58-79 18-20 95-171/54-86 95-97 lungs clear, no crackles cxray markedly improved! quantiferon gold negative ASSESSMENT AND PLAN: d/c isolation doubt tb with negative quant and such rapic cxray improvement ?all chf will d/w renal continue vanco/azactam for now day #5 ?home on Wednesday after HD? Problem List - Problems (1) Pneumonia Code(s): J18.9 - PNEUMONIA, UNSPECIFIED ORGANISM (2) Fluid overload, unspecified Code(s): E87.70 - FLUID OVERLOAD, UNSPECIFIED Qualifiers: Hypervolemia type: unspecified Qualified Code(s): E87.70 - Fluid overload, unspecified (3) ESRD (end stage renal disease) on dialysis Code(s): N18.6 - END STAGE RENAL DISEASE; Z99.2 - DEPENDENCE ON RENAL DIALYSIS (4) Penicillin allergy Code(s): Z88.0 - ALLERGY STATUS TO PENICILLIN
[2017-07-22] MEDS ORDERED: VANCOMYCIN 1,000 MG in DEXTROSE 5%-WATER - 250 ML IVPB ONE (16:00)
[2017-07-23] MEDS ORDERED: PT OWN MED DRAWER 7, Y5N ONE ×2 (05:24→17:15)
[2017-07-23] MEDS: HEPARIN NA (PORCINE) 5,000 UNITS/ML 1ML VIAL SQ SCH ×3 (05:28→21:38)
[2017-07-23] MEDS: AZTREONAM 0.5 GM in DEXTROSE 5%-WATER - 50 ML IVPB SCH ×2 (05:28→18:06)
[2017-07-23] MEDS: METOCLOPRAMIDE HCL 10 MG TABLET (FP) PO SCH ×4 (06:25→21:38)
[2017-07-23] MEDS: PANTOPRAZOLE 20 MG TABLET (FP) PO SCH (09:37)
[2017-07-23] MEDS: SEVELAMER CARBONATE 800 MG TAB (FP) PO SCH ×4 (09:37→19:23)
[2017-07-23] MEDS: ASPIRIN COATED 81 MG TABLET.EC PO SCH (09:37)
[2017-07-23] MEDS: amLODIPine BESYLATE 5 MG TABLET (FP) PO SCH (09:38)
[2017-07-23 12:19] LABS: HEMATOCRIT 26.5 % (32.4-45.2); HEMOGLOBIN 9.1 GM/dL (10.7-15.3); MCH 35.4 pg (25.7-33.7); MCHC 34.2 g/dl (32.0-36.0); MEAN CELL VOLUME 103.5 fl (80-96); MEAN PLT VOLUME 8.6 fl (7.5-11.1); PLATELET COUNT 521 K/MM3 (134-434); RBC 2.56 M/mm3 (3.60-5.2); RDW 14.5 % (11.6-15.6); WHITE BLOOD COUNT 7.7 K/mm3 (4.0-10.0)
--- NOTE | 2017-07-23 12:29 | PN ---
Progress Note (short form) - Note Progress Note: pt seen and examined appears weak/tired. chart reviewed events note Constitutional: Yes: No Distress, Calm Eyes: Yes: Conjunctiva Clear HENT: Yes: Atraumatic, Normocephalic Neck: Yes: Supple Cardiovascular: Yes: Regular Rate and Rhythm Respiratory: Yes: Regular, CTA Bilaterally Gastrointestinal: Yes: Normal Bowel Sounds, Soft Extremities: Yes: WNL Edema: No Last Vital Signs Temp Pulse Resp BP Pulse Ox 98 F 64 20 146/59 97 07/23/17 09:29 07/23/17 09:29 07/23/17 09:29 07/23/17 09:29 07/23/17 09:00 CBC, BMP 07/23/17 11:45 Current Medications Generic Name Dose Route Start Last Admin Trade Name Freq PRN Reason Stop Dose Admin Acetaminophen 650 mg 07/20/17 22:21 07/20/17 22:42 Tylenol - PO 650 mg Q6H PRN Administration FEVER Amlodipine Besylate 5 mg 07/19/17 10:00 07/23/17 09:38 Norvasc - PO 5 mg DAILY [facility] Administration Aspirin 81 mg 07/19/17 10:00 07/23/17 09:37 Ecotrin - PO 81 mg DAILY [facility] Administration Heparin Sodium (Porcine) 5,000 unit 07/18/17 22:00 07/23/17 05:28 Heparin - SQ 5,000 unit TID [facility] Administration Aztreonam 0.5 gm/ Dextrose 50 mls @ 100 mls/hr 07/19/17 18:00 07/23/17 05:28 IVPB 100 mls/hr BID@0600,1800 [facility] Administration Protocol Metoclopramide HCl 5 mg 07/18/17 16:30 07/23/17 06:25 Reglan - PO 5 mg ACHS [facility] Administration Metoprolol Succinate 50 mg 07/19/17 10:00 07/23/17 09:37 Toprol Xl - PO 50 mg DAILY [facility] Administration Pantoprazole Sodium 40 mg 07/19/17 10:00 07/23/17 09:37 Protonix - PO 40 mg DAILY [facility] Administration Sevelamer Carbonate 2,400 mg 07/19/17 08:00 07/23/17 09:37 Renvela - PO 2,400 mg TIDCM [facility] Administration Chronic Macrocytic anemia: likely in the setting ESRD for Procrit/Venofer,will need to continue the same iron w/u reviewed flow cytometry negative negative FISH for MDS panel Thrombocytosis:likely reactive, to monitor.
--- NOTE | 2017-07-23 12:29 | PN ---
Teaching Attending Note Name of Resident: José Miguel Stone ATTENDING PHYSICIAN STATEMENT I saw and evaluated the patient. I reviewed the resident's note and discussed the case with the resident. I agree with the resident's findings and plan as documented. SUBJECTIVE: continues to improve OBJECTIVE: Vital Signs Period Temp Pulse Resp BP Sys/Barnard Pulse Ox Last 24 Hr 98 F-98.6 F 56-64 20-20 140-149/55-61 97-97 cor-rrr lungs few crackles at the bases abd soft,nt ext no edema CBC, BMP 07/23/17 11:45 Microbiology 07/18/17 13:45 Blood - Peripheral Venous Blood Culture - Preliminary NO GROWTH OBTAINED AFTER 96 HOURS, INCUBATION TO CONTINUE FOR 1 DAYS. 07/18/17 14:00 Blood - Peripheral Venous Blood Culture - Preliminary NO GROWTH OBTAINED AFTER 96 HOURS, INCUBATION TO CONTINUE FOR 1 DAYS. ASSESSMENT AND PLAN: bilateral infiltrates ?alll volume overload day # 6 antibiotics would consider d/c home after HD in am 9 will have completed 7 days vanco/ azactam please call back if needed Problem List - Problems (1) Pneumonia Code(s): J18.9 - PNEUMONIA, UNSPECIFIED ORGANISM (2) Fluid overload, unspecified Code(s): E87.70 - FLUID OVERLOAD, UNSPECIFIED Qualifiers: Hypervolemia type: unspecified Qualified Code(s): E87.70 - Fluid overload, unspecified (3) ESRD (end stage renal disease) on dialysis Code(s): N18.6 - END STAGE RENAL DISEASE; Z99.2 - DEPENDENCE ON RENAL DIALYSIS (4) Penicillin allergy Code(s): Z88.0 - ALLERGY STATUS TO PENICILLIN
[2017-07-23 12:33] LABS: ANION GAP 7 (8-16); BLOOD UREA NITROGEN 43 mg/dL (7-18); CALCIUM 8.4 mg/dL (8.5-10.1); CHLORIDE 97 mmol/L (98-107); CO2 31 mmol/L (21-32); CREATININE 5.6 mg/dL (0.55-1.02); GLUCOSE,RANDOM 144 mg/dL (74-106); POTASSIUM 4.4 mmol/L (3.5-5.1); SODIUM 135 mmol/L (136-145)
--- NOTE | 2017-07-23 12:58 | PN ---
Progress Note, Physician Chief Complaint: ESRD History of Present Illness: NAD,weak IV abx, seen by ID son and at bedside, spoke to family - Current Medication List Current Medications: Active Medications Acetaminophen (Tylenol -) 650 mg PO Q6H PRN PRN Reason: FEVER Last Admin: 07/20/17 22:42 Dose: 650 mg Amlodipine Besylate (Norvasc -) 5 mg PO DAILY [facility] Last Admin: 07/23/17 09:38 Dose: 5 mg Aspirin (Ecotrin -) 81 mg PO DAILY [facility] Last Admin: 07/23/17 09:37 Dose: 81 mg Heparin Sodium (Porcine) (Heparin -) 5,000 unit SQ TID [facility] Last Admin: 07/23/17 05:28 Dose: 5,000 unit Aztreonam 0.5 gm/ Dextrose 50 mls @ 100 mls/hr IVPB BID@0600,1800 [facility] PRN Reason: Protocol Last Admin: 07/23/17 05:28 Dose: 100 mls/hr Metoclopramide HCl (Reglan -) 5 mg PO ACHS [facility] Last Admin: 07/23/17 06:25 Dose: 5 mg Metoprolol Succinate (Toprol Xl -) 50 mg PO DAILY [facility] Last Admin: 07/23/17 09:37 Dose: 50 mg Pantoprazole Sodium (Protonix -) 40 mg PO DAILY [facility] Last Admin: 07/23/17 09:37 Dose: 40 mg Sevelamer Carbonate (Renvela -) 2,400 mg PO TIDCM [facility] Last Admin: 07/23/17 09:37 Dose: 2,400 mg - Objective Vital Signs: Vital Signs Temperature 98 F 07/23/17 09:29 Pulse Rate 64 07/23/17 09:29 Respiratory Rate 20 07/23/17 09:29 Blood Pressure 146/59 07/23/17 09:29 O2 Sat by Pulse Oximetry (%) 97 07/23/17 09:00 Constitutional: Yes: No Distress, Calm, Cachectic Cardiovascular: Yes: Regular Rate and Rhythm Respiratory: Yes: Regular, Rales (BLL) Musculoskeletal: Yes: Muscle Weakness Extremities: Yes: WNL Edema: No Peripheral Pulses WNL: Yes Neurological: Yes: Alert, Oriented Psychiatric: Yes: Alert, Oriented Labs: CBC, BMP 07/23/17 11:45 07/23/17 11:45 INR, PTT INR 1.24 (0.82-1.09) H 07/18/17 13:54 Problem List - Problems (1) Acute hypoxemic respiratory failure Assessment/Plan: -pulmonary consult -Last CXR still shows infiltrates -ID consult -IV abx -Nasal O2 PRN Code(s): J96.01 - ACUTE RESPIRATORY FAILURE WITH HYPOXIA (2) Diabetes Assessment/Plan: -recheck A1c Code(s): E11.9 - TYPE 2 DIABETES MELLITUS WITHOUT COMPLICATIONS (3) ESRD (end stage renal disease) on dialysis Assessment/Plan: Dialysis TThSa -seen by nephrology -Procrit Code(s): N18.6 - END STAGE RENAL DISEASE; Z99.2 - DEPENDENCE ON RENAL DIALYSIS (4) Pneumonia Assessment/Plan: -ID consult -Pulmonary consult -IV abx -Nasal O2 PRN -Pre and post exercise O2 Code(s): J18.9 - PNEUMONIA, UNSPECIFIED ORGANISM Assessment/Plan see problem list dvt prophylaxis Physical therapy
--- NOTE | 2017-07-23 13:12 | PN ---
Progress Note, Physician History of Present Illness: Infectious disease consultation follow up: Patient seen and examined at bedside while on HD. Patient's breathing continues to improve daily. - Current Medication List Current Medications: Active Medications Acetaminophen (Tylenol -) 650 mg PO Q6H PRN PRN Reason: FEVER Last Admin: 07/20/17 22:42 Dose: 650 mg Amlodipine Besylate (Norvasc -) 5 mg PO DAILY [facility] Last Admin: 07/23/17 09:38 Dose: 5 mg Aspirin (Ecotrin -) 81 mg PO DAILY [facility] Last Admin: 07/23/17 09:37 Dose: 81 mg Heparin Sodium (Porcine) (Heparin -) 5,000 unit SQ TID [facility] Last Admin: 07/23/17 05:28 Dose: 5,000 unit Aztreonam 0.5 gm/ Dextrose 50 mls @ 100 mls/hr IVPB BID@0600,1800 [facility] PRN Reason: Protocol Last Admin: 07/23/17 05:28 Dose: 100 mls/hr Metoclopramide HCl (Reglan -) 5 mg PO ACHS [facility] Last Admin: 07/23/17 06:25 Dose: 5 mg Metoprolol Succinate (Toprol Xl -) 50 mg PO DAILY [facility] Last Admin: 07/23/17 09:37 Dose: 50 mg Pantoprazole Sodium (Protonix -) 40 mg PO DAILY [facility] Last Admin: 07/23/17 09:37 Dose: 40 mg Sevelamer Carbonate (Renvela -) 2,400 mg PO TIDCM [facility] Last Admin: 07/23/17 09:37 Dose: 2,400 mg - Objective Vital Signs: Vital Signs Temperature 98 F 07/23/17 09:29 Pulse Rate 64 07/23/17 09:29 Respiratory Rate 20 07/23/17 09:29 Blood Pressure 146/59 07/23/17 09:29 O2 Sat by Pulse Oximetry (%) 97 07/23/17 09:00 Constitutional: Yes: Well Nourished, No Distress, Calm Cardiovascular: Yes: Regular Rate and Rhythm, S1, S2. No: JVD, Gallop, Murmur, Rub Respiratory: Yes: Regular, Other (crackles at the bases) Gastrointestinal: Yes: Normal Bowel Sounds, Soft Neurological: Yes: Alert, Oriented Psychiatric: Yes: Alert, Oriented Labs: CBC, BMP 07/23/17 11:45 07/23/17 11:45 INR, PTT INR 1.24 (0.82-1.09) H 07/18/17 13:54 Assessment/Plan The Patient is a 72 yo f w/ PMH HTN, ESRD on HD who is admitted for the treatment of pneumonia. #Pneumonia -QTc 493; use caution with administration of Levaquin -vancomycin theraputic today, will hold dose for today -f/u C-ANCA and P-ANCA -f/u MARITA -f/u Histoplasma serum antigen -ESR elevated to 94 -c/w Azactam .5gm BID for now -Iso d/c -case d/w Dr. michael
--- NOTE | 2017-07-23 14:03 | PN ---
Progress Note, Physician History of Present Illness: PULMONARY ALERT,NAD,-SOB,LESS CONGESTED - Current Medication List Current Medications: Active Medications Acetaminophen (Tylenol -) 650 mg PO Q6H PRN PRN Reason: FEVER Last Admin: 07/20/17 22:42 Dose: 650 mg Amlodipine Besylate (Norvasc -) 5 mg PO DAILY [facility] Last Admin: 07/23/17 09:38 Dose: 5 mg Aspirin (Ecotrin -) 81 mg PO DAILY [facility] Last Admin: 07/23/17 09:37 Dose: 81 mg Heparin Sodium (Porcine) (Heparin -) 5,000 unit SQ TID [facility] Last Admin: 07/23/17 13:48 Dose: 5,000 unit Aztreonam 0.5 gm/ Dextrose 50 mls @ 100 mls/hr IVPB BID@0600,1800 [facility] PRN Reason: Protocol Last Admin: 07/23/17 05:28 Dose: 100 mls/hr Metoclopramide HCl (Reglan -) 5 mg PO ACHS [facility] Last Admin: 07/23/17 12:00 Dose: 5 mg Metoprolol Succinate (Toprol Xl -) 50 mg PO DAILY [facility] Last Admin: 07/23/17 09:37 Dose: 50 mg Pantoprazole Sodium (Protonix -) 40 mg PO DAILY [facility] Last Admin: 07/23/17 09:37 Dose: 40 mg Sevelamer Carbonate (Renvela -) 2,400 mg PO TIDCM [facility] Last Admin: 07/23/17 13:48 Dose: 2,400 mg - Objective Vital Signs: Vital Signs Temperature 98 F 07/23/17 09:29 Pulse Rate 73 07/23/17 13:48 Respiratory Rate 20 07/23/17 09:29 Blood Pressure 146/59 07/23/17 09:29 O2 Sat by Pulse Oximetry (%) 94 L 07/23/17 13:48 Constitutional: Yes: Well Nourished, Calm Eyes: Yes: WNL HENT: Yes: WNL Neck: Yes: WNL Cardiovascular: Yes: Regular Rate and Rhythm, S1, S2 Respiratory: Yes: Rales (JEAN CARLOS CRACKLES) Gastrointestinal: Yes: Normal Bowel Sounds, Soft Extremities: Yes: WNL Edema: No Labs: CBC, BMP 07/23/17 11:45 07/23/17 11:45 INR, PTT INR 1.24 (0.82-1.09) H 07/18/17 13:54 Problem List - Problems (1) HTN (hypertension) Code(s): I10 - ESSENTIAL (PRIMARY) HYPERTENSION (2) ESRD (end stage renal disease) on dialysis Code(s): N18.6 - END STAGE RENAL DISEASE; Z99.2 - DEPENDENCE ON RENAL DIALYSIS (3) Hypoxia Code(s): R09.02 - HYPOXEMIA (4) Penicillin allergy Code(s): Z88.0 - ALLERGY STATUS TO PENICILLIN (5) Pneumonia Code(s): J18.9 - PNEUMONIA, UNSPECIFIED ORGANISM (6) Diabetes Code(s): E11.9 - TYPE 2 DIABETES MELLITUS WITHOUT COMPLICATIONS (7) Diabetes Code(s): E11.9 - TYPE 2 DIABETES MELLITUS WITHOUT COMPLICATIONS (8) Acute hypoxemic respiratory failure Code(s): J96.01 - ACUTE RESPIRATORY FAILURE WITH HYPOXIA Assessment/Plan IMP ACUTE HYPOXEMIC RESPIRATORY FAILURE IMPROVED BILATERAL PATCHY INFILTRATES LIKELY PNEUMONIA ESRD ON HD CHF HTN DM PLAN HD PER RENAL ABX PER ID INHALED BRONCHODILATORS O2 TO MAINTAIN SAT 92%OR GREATER STRICT I+OS F/O CHEST X-RAYS AND CHEST CT TO DOCUMENT RESOLUTION OF INFILTRATES DR MULLEN Problem List - Problems (1) HTN (hypertension) Code(s): I10 - ESSENTIAL (PRIMARY) HYPERTENSION (2) ESRD (end stage renal disease) on dialysis Code(s): N18.6 - END STAGE RENAL DISEASE; Z99.2 - DEPENDENCE ON RENAL DIALYSIS (3) Hypoxia Code(s): R09.02 - HYPOXEMIA (4) Penicillin allergy Code(s): Z88.0 - ALLERGY STATUS TO PENICILLIN (5) Pneumonia Code(s): J18.9 - PNEUMONIA, UNSPECIFIED ORGANISM (6) Diabetes Code(s): E11.9 - TYPE 2 DIABETES MELLITUS WITHOUT COMPLICATIONS (7) Diabetes Code(s): E11.9 - TYPE 2 DIABETES MELLITUS WITHOUT COMPLICATIONS (8) Acute hypoxemic respiratory failure Code(s): J96.01 - ACUTE RESPIRATORY FAILURE WITH HYPOXIA
--- NOTE | 2017-07-23 16:42 | PN ---
Progress Note (short form) - Note Progress Note: 72 year-old female from [place] on hd for 6 years dialyzed YESTERDAY 2.0 kg REMOVED Off NC O2 SATS 96% Walked qunterferon neg on zavtm stop vanco level high xray image reviewed still has bilteral infiltrates FEELS BETTER OOB TO CHAIR HD IN AM dc if stable from id standpoint
[2017-07-24] MEDS: AZTREONAM 0.5 GM in DEXTROSE 5%-WATER - 50 ML IVPB SCH (06:02)
[2017-07-24] MEDS: METOCLOPRAMIDE HCL 10 MG TABLET (FP) PO SCH ×2 (06:02→12:08)
[2017-07-24] MEDS: HEPARIN NA (PORCINE) 5,000 UNITS/ML 1ML VIAL SQ SCH ×2 (06:02→13:59)
[2017-07-24] MEDS ORDERED: EPOETIN ALFA 10,000 UNIT/1 ML VIAL IVPUSH ONE (08:00)
[2017-07-24 08:50] LABS: BASO % 0.5 % (0-2.0); EOS % 6.5 % (0-4.5); HEMATOCRIT 26.3 % (32.4-45.2); HEMOGLOBIN 8.9 GM/dL (10.7-15.3); MCH 35.4 pg (25.7-33.7); MEAN CELL VOLUME 103.9 fl (80-96); MEAN PLT VOLUME 9.1 fl (7.5-11.1); MONO % 7.4 % (3.8-10.2); NEUT % 60.6 % (42.8-82.8); PLATELET COUNT 496 K/MM3 (134-434); RBC 2.53 M/mm3 (3.60-5.2); RDW 14.7 % (11.6-15.6); WHITE BLOOD COUNT 8.2 K/mm3 (4.0-10.0)
[2017-07-24] MEDS: amLODIPine BESYLATE 5 MG TABLET (FP) PO SCH (09:07)
[2017-07-24] MEDS: SEVELAMER CARBONATE 800 MG TAB (FP) PO SCH ×2 (09:07→12:08)
[2017-07-24] MEDS: ASPIRIN COATED 81 MG TABLET.EC PO SCH (09:12)
[2017-07-24] MEDS: PANTOPRAZOLE 20 MG TABLET (FP) PO SCH (09:12)
[2017-07-24 09:47] LABS: ALBUMIN 2.7 g/dl (3.4-5.0); ANION GAP 11 (8-16); BLOOD UREA NITROGEN 49 mg/dL (7-18); CALCIUM 8.5 mg/dL (8.5-10.1); CHLORIDE 96 mmol/L (98-107); CO2 27 mmol/L (21-32); CREATININE 6.1 mg/dL (0.55-1.02); GLUCOSE,RANDOM 114 mg/dL (74-106); POTASSIUM 4.4 mmol/L (3.5-5.1); SGOT/AST 18 U/L (15-37); SGPT/ALT 9 U/L (12-78); SODIUM 134 mmol/L (136-145)
[2017-07-24 09:48] LABS: ALK PHOS 145 U/L (45-117); BILIRUBIN,TOTAL 0.5 mg/dL (0.2-1.0); TOT PROT 7.1 g/dl (6.4-8.2)
--- NOTE | 2017-07-24 13:09 | PN ---
Progress Note (short form) - Note Progress Note: No acute events overnight. No CP. Breathing appears to be improving. Intake & Output 07/21/17 07/22/17 07/23/17 07/24/17 23:59 23:59 23:59 23:59 Intake Total 410 420 270 450 Output Total 60 Balance 410 420 210 450 Weight 94 lb 6.4 oz Last Vital Signs Temp Pulse Resp BP Pulse Ox 98.4 F 64 18 110/52 96 07/24/17 07:25 07/24/17 11:00 07/24/17 11:00 07/24/17 11:00 07/24/17 08:56 Active Medications Acetaminophen (Tylenol -) 650 mg PO Q6H PRN PRN Reason: FEVER Last Admin: 07/20/17 22:42 Dose: 650 mg Amlodipine Besylate (Norvasc -) 5 mg PO DAILY [facility] Last Admin: 07/24/17 09:07 Dose: Not Given Aspirin (Ecotrin -) 81 mg PO DAILY [facility] Last Admin: 07/24/17 09:12 Dose: 81 mg Heparin Sodium (Porcine) (Heparin -) 5,000 unit SQ TID [facility] Last Admin: 07/24/17 06:02 Dose: 5,000 unit Aztreonam 0.5 gm/ Dextrose 50 mls @ 100 mls/hr IVPB BID@0600,1800 [facility] PRN Reason: Protocol Last Admin: 07/24/17 06:02 Dose: 100 mls/hr Metoclopramide HCl (Reglan -) 5 mg PO ACHS [facility] Last Admin: 07/24/17 12:08 Dose: 5 mg Metoprolol Succinate (Toprol Xl -) 50 mg PO DAILY [facility] Last Admin: 07/24/17 09:07 Dose: Not Given Pantoprazole Sodium (Protonix -) 40 mg PO DAILY [facility] Last Admin: 07/24/17 09:12 Dose: 40 mg Sevelamer Carbonate (Renvela -) 2,400 mg PO TIDCM [facility] Last Admin: 07/24/17 12:08 Dose: 2,400 mg Constitutional: Yes: NAD Eyes: Yes: WNL HENT: Yes: WNL Neck: Yes: WNL Cardiovascular: Yes: Regular Rate and Rhythm, S1, S2 Respiratory: Yes: Scattered rhonchi, mostly at the rest Gastrointestinal: Yes: Normal Bowel Sounds, Soft Extremities: Yes: WNL Edema: No Labs: Laboratory Results - last 24 hr 07/21/17 07/24/17 07/24/17 07:00 07:30 07:30 WBC 8.2 RBC 2.53 L Hgb 8.9 L Hct 26.3 L MCV 103.9 H MCH 35.4 H MCHC 34.0 RDW 14.7 Plt Count 496 H MPV 9.1 Neutrophils % 60.6 D Lymphocytes % 25.0 D Monocytes % 7.4 Eosinophils % 6.5 H D Basophils % 0.5 Sodium 134 L Potassium 4.4 Chloride 96 L Carbon Dioxide 27 Anion Gap 11 BUN 49 H Creatinine 6.1 H Creat Clearance w eGFR 6.74 Random Glucose 114 H Hemoglobin A1c % Calcium 8.5 Total Bilirubin 0.5 AST 18 ALT 9 L Alkaline Phosphatase 145 H Total Protein 7.1 Albumin 2.7 L MARITA Screen Negative 07/24/17 07:30 WBC RBC Hgb Hct MCV MCH MCHC RDW Plt Count MPV Neutrophils % Lymphocytes % Monocytes % Eosinophils % Basophils % Sodium Potassium Chloride Carbon Dioxide Anion Gap BUN Creatinine Creat Clearance w eGFR Random Glucose Hemoglobin A1c % 5.0 Calcium Total Bilirubin AST ALT Alkaline Phosphatase Total Protein Albumin MARITA Screen Problem List - Problems (1) HTN (hypertension) Code(s): I10 - ESSENTIAL (PRIMARY) HYPERTENSION (2) ESRD (end stage renal disease) on dialysis Code(s): N18.6 - END STAGE RENAL DISEASE; Z99.2 - DEPENDENCE ON RENAL DIALYSIS (3) Hypoxia Code(s): R09.02 - HYPOXEMIA (4) Penicillin allergy Code(s): Z88.0 - ALLERGY STATUS TO PENICILLIN (5) Pneumonia Code(s): J18.9 - PNEUMONIA, UNSPECIFIED ORGANISM (6) Diabetes Code(s): E11.9 - TYPE 2 DIABETES MELLITUS WITHOUT COMPLICATIONS (7) Diabetes Code(s): E11.9 - TYPE 2 DIABETES MELLITUS WITHOUT COMPLICATIONS (8) Acute hypoxemic respiratory failure Code(s): J96.01 - ACUTE RESPIRATORY FAILURE WITH HYPOXIA Assessment/Plan IMP ACUTE HYPOXEMIC RESPIRATORY FAILURE IMPROVED BILATERAL PATCHY INFILTRATES LIKELY PNEUMONIA ESRD ON HD CHF HTN DM PLAN HD PER RENAL ABX PER ID INHALED BRONCHODILATORS O2 TO MAINTAIN SAT 92%OR GREATER F/O CHEST X-RAYS AFTER DISCHARGE TO DOCUMENT RESOLUTION OF INFILTRATES DR BROWN
--- NOTE | 2017-07-24 13:15 | PN ---
Progress Note, Physician Chief Complaint: ESRD History of Present Illness: NAD,weak son and at bedside, spoke to family - Current Medication List Current Medications: Active Medications Acetaminophen (Tylenol -) 650 mg PO Q6H PRN PRN Reason: FEVER Last Admin: 07/20/17 22:42 Dose: 650 mg Amlodipine Besylate (Norvasc -) 5 mg PO DAILY [facility] Last Admin: 07/24/17 09:07 Dose: Not Given Aspirin (Ecotrin -) 81 mg PO DAILY [facility] Last Admin: 07/24/17 09:12 Dose: 81 mg Heparin Sodium (Porcine) (Heparin -) 5,000 unit SQ TID [facility] Last Admin: 07/24/17 06:02 Dose: 5,000 unit Aztreonam 0.5 gm/ Dextrose 50 mls @ 100 mls/hr IVPB BID@0600,1800 [facility] PRN Reason: Protocol Last Admin: 07/24/17 06:02 Dose: 100 mls/hr Metoclopramide HCl (Reglan -) 5 mg PO ACHS [facility] Last Admin: 07/24/17 12:08 Dose: 5 mg Metoprolol Succinate (Toprol Xl -) 50 mg PO DAILY [facility] Last Admin: 07/24/17 09:07 Dose: Not Given Pantoprazole Sodium (Protonix -) 40 mg PO DAILY [facility] Last Admin: 07/24/17 09:12 Dose: 40 mg Sevelamer Carbonate (Renvela -) 2,400 mg PO TIDCM [facility] Last Admin: 07/24/17 12:08 Dose: 2,400 mg - Objective Vital Signs: Vital Signs Temperature 98.4 F 07/24/17 07:25 Pulse Rate 64 07/24/17 11:00 Respiratory Rate 18 07/24/17 11:00 Blood Pressure 110/52 07/24/17 11:00 O2 Sat by Pulse Oximetry (%) 96 07/24/17 08:56 Constitutional: Yes: No Distress, Calm, Cachectic Cardiovascular: Yes: Regular Rate and Rhythm Respiratory: Yes: Regular Musculoskeletal: Yes: WNL Extremities: Yes: WNL Edema: No Peripheral Pulses WNL: Yes Neurological: Yes: Alert, Oriented Psychiatric: Yes: Alert, Oriented Labs: CBC, BMP 07/24/17 07:30 07/24/17 07:30 INR, PTT INR 1.24 (0.82-1.09) H 07/18/17 13:54 Problem List - Problems (1) Acute hypoxemic respiratory failure Assessment/Plan: -pulmonary consult -Last CXR still shows infiltrates -ID consult -IV abx -Nasal O2 PRN Code(s): J96.01 - ACUTE RESPIRATORY FAILURE WITH HYPOXIA (2) Diabetes Assessment/Plan: -recheck A1c Code(s): E11.9 - TYPE 2 DIABETES MELLITUS WITHOUT COMPLICATIONS (3) ESRD (end stage renal disease) on dialysis Assessment/Plan: Dialysis TThSa -seen by nephrology -Procrit Code(s): N18.6 - END STAGE RENAL DISEASE; Z99.2 - DEPENDENCE ON RENAL DIALYSIS (4) Pneumonia Assessment/Plan: -ID consult -Pulmonary consult -IV abx -Nasal O2 PRN -Pre and post exercise O2 Code(s): J18.9 - PNEUMONIA, UNSPECIFIED ORGANISM Assessment/Plan see problem list dvt prophylaxis Physical therapy D/C after HD
[2017-07-24 14:53] VITALS: BP 142/67; PULSE 78; TEMP 99
[2017-07-27 00:06] LABS: ATYPICAL pANCA <1:20 titer (Neg:<1:20); C-ANCA <1:20 titer (Neg:<1:20); P-ANCA <1:20 titer (Neg:<1:20); PROTEINASE-3 ANTIBODY <3.5 U/mL (0.0-3.5)
== END 2017-07-24 15:20 | disposition home health service (06) | DRG 133 ==
LOC: FER 13:04 → J4S 18:25
PROVIDERS: ADMIT Family Medicine; ATTEND Family Medicine
PROC: 5A1D70Z Performance of Urinary Filtration, Intermittent, Less than 6 Hours Per Day (ICD-10-PCS; principal; 2017-07-18)
DX: J96.01 Acute respiratory failure with hypoxia (principal); J18.9 Pneumonia, unspecified organism; I13.2 Hypertensive heart and chronic kidney disease with heart failure and with stage 5 chronic kidney disease, or end stage renal disease; R64 Cachexia; E87.70 Fluid overload, unspecified; N18.6 End stage renal disease; I50.9 Heart failure, unspecified; I34.0 Nonrheumatic mitral (valve) insufficiency; D53.9 Nutritional anemia, unspecified; Z99.2 Dependence on renal dialysis; R07.89 Other chest pain; Z88.0 Allergy status to penicillin; K76.9 Liver disease, unspecified; Z68.1 Body mass index [BMI] 19.9 or less, adult; D47.3 Essential (hemorrhagic) thrombocythemia
CPT/HCPCS: 36415; 71045-TC-FY; 71250-TC; 80048; 80053; 82607; 82728; 82747; 82803; 83036; 83520; 83540; 83550; 83605; 83735; 84439; 84443; 84484; 85014; 85025; 85027; 85610; 85651; 85730; 86038; 86140; 86256; 86480; 86704; 86706; 86708; 86850; 86900; 86901; 87040; 87340; 88300-TC; 93005; 94761; 97116-GP; 97161-GP; 99285-25; G0480; J0885; J1644; J1756